=== PATIENT | female | born 1945 | race Caucasian/White ===

== ENCOUNTER 2019-02-07 16:58 | Inpatient (IN) | payer OTHER ==
[~2019-02-07] VITALS: Ht 162.6 cm; Wt 41.3 kg
[2019-02-07 18:45] VITALS: BP_SYST 153
[2019-02-07] MEDS ORDERED: ZIPR20CA2 PO (19:08)
[2019-02-07] MEDS ORDERED: ALBU8.5H8 INH (19:08)
[2019-02-07] MEDS ORDERED: FLUT1DIS3 IH ×2 (19:08→19:43)
[2019-02-07] MEDS ORDERED: VITD2000 PO (19:43)
[2019-02-07] MEDS ORDERED: VALP250C3 PO (19:43)
[2019-02-07] MEDS ORDERED: DOCU250C14 PO (19:43)
[2019-02-07] MEDS ORDERED: GEO40 PO (19:43)
[2019-02-07 20:02] VITALS: BP_SYST 140
[2019-02-07] MEDS ORDERED: ALBUTEROL SULFATE 0.083% 2.5 MG/3 ML VIAL.NEB INH PRN (21:45)
[2019-02-07 22:11] VITALS: BP_SYST 140
[2019-02-07 22:21] LABS: BASOPHILS % (AUTO) 0.2 % (0.0-2.0); EOSINOPHILS % (AUTO) 0.8 % (0.0-4.0); HEMATOCRIT 40.1 % (36-48); HEMOGLOBIN 13.6 g/dL (12.0-16.0); LYMPHOCYTES % (AUTO) 16.7 % (20.5-51.5); MEAN CORPUSCULAR HEMOGLOBIN 31 pg (27-31); MEAN CORPUSCULAR HGB CONC 34 % (32-36); MEAN CORPUSCULAR VOLUME 92 fL (79.0-98.0); MONOCYTES # (AUTO) 0.4 K/uL (0.0-1.0); MONOCYTES % (AUTO) 6.5 % (1.7-9.3); NEUTROPHILS # (AUTO) 4.4 K/uL (1.8-7.7); NEUTROPHILS % (AUTO) 75.8 % (40.0-70.0); PLATELET COUNT (AUTO) 163 K/uL (130-430); RED BLOOD CELL COUNT(AUTO) 4.36 MIL/uL (4.2-6.2); RED CELL DISTRIBUTION WIDTH 15.3 % (9.0-15.0); WHITE BLOOD COUNT (AUTO) 5.8 K/uL (4.8-10.8)
[2019-02-07 22:30] LABS: ANION GAP 1 (5-15); CALCIUM 8.8 mg/dL (8.4-11.0); CHLORIDE 103 mmol/L (98-107); CREATININE 0.47 mg/dL (0.55-1.30); GLUCOSE 116 mg/dL (70-99); POTASSIUM 3.4 mmol/L (3.5-5.1); SODIUM SERUM 140 mmol/L (136-145); UREA NITROGEN, BLOOD 14 mg/dL (8-21)
[2019-02-07 22:36] LABS: ALANINE AMINOTRANSFERASE 15 U/L (12-78); ALBUMIN 3.4 g/dL (3.4-4.8); ASPARTATE AMINOTRANSFERASE 28 U/L (10-37); TOTAL BILIRUBIN 0.4 mg/dL (0.0-1.0)
[2019-02-07 23:34] VITALS: BP_SYST 128
[2019-02-07 23:34] LABS: BILIRUBIN,URINE NEGATIVE (NEGATIVE); CLARITY/URINE CLEAR (CLEAR); COLOR,URINE YELLOW (YELLOW); GLUCOSE,URINE NEGATIVE (NEGATIVE); KETONES,URINE 1+ (NEGATIVE); LEUKOCYTE ESTERASE ,URINE NEGATIVE (NEGATIVE); NITRITE, URINE NEGATIVE (NEGATIVE); PH,URINE 7.5 (5.0-8.0); PROTEIN URINE NEGATIVE (NEGATIVE)
[2019-02-07 23:42] LABS: BLOOD, URINE TRACE (NEGATIVE)
[2019-02-07 23:44] LABS: BACTERIA,URINE MANY /HPF (None Seen); WBC,URINE 0-3 /HPF (0-3)
[2019-02-08] MEDS: NACL 0.9% 1,000 ML IV SCH ×2 (00:58→09:17)
[2019-02-08 08:00] VITALS: BP_SYST 111
[2019-02-08 08:21] LABS: BASOPHILS % (AUTO) 0.4 % (0.0-2.0); EOSINOPHILS # (AUTO) 0.1 K/uL (0.0-0.4); EOSINOPHILS % (AUTO) 1.8 % (0.0-4.0); HEMATOCRIT 36.7 % (36-48); HEMOGLOBIN 12.3 g/dL (12.0-16.0); LYMPHOCYTES # (AUTO) 1.2 K/uL (1.0-5.5); LYMPHOCYTES % (AUTO) 21.7 % (20.5-51.5); MEAN CORPUSCULAR HEMOGLOBIN 31 pg (27-31); MEAN CORPUSCULAR HGB CONC 33 % (32-36); MEAN CORPUSCULAR VOLUME 92 fL (79.0-98.0); MONOCYTES # (AUTO) 0.5 K/uL (0.0-1.0); MONOCYTES % (AUTO) 8.1 % (1.7-9.3); NEUTROPHILS # (AUTO) 3.9 K/uL (1.8-7.7); PLATELET COUNT (AUTO) 148 K/uL (130-430); RED BLOOD CELL COUNT(AUTO) 3.98 MIL/uL (4.2-6.2); RED CELL DISTRIBUTION WIDTH 15.5 % (9.0-15.0); WHITE BLOOD COUNT (AUTO) 5.7 K/uL (4.8-10.8)
[2019-02-08 08:37] LABS: ANION GAP 2 (5-15); CALCIUM 8.4 mg/dL (8.4-11.0); CHLORIDE 105 mmol/L (98-107); GLUCOSE 76 mg/dL (70-99); POTASSIUM 3.6 mmol/L (3.5-5.1); SODIUM SERUM 140 mmol/L (136-145); UREA NITROGEN, BLOOD 10 mg/dL (8-21)
[2019-02-08] MEDS ORDERED: FLU VACC TS2019(65UP)/MF59C/PF 45 MCG/0.5 ML SYRINGE I.M. PRN (09:00)
[2019-02-08] MEDS: CHOLECALCIFEROL (VITAMIN D3) 2,000 UNIT TABLET PO SCH (09:33)
[2019-02-08] MEDS: DOCUSATE SODIUM 250 MG CAPSULE PO SCH ×2 (09:33→20:29)
[2019-02-08] MEDS: VALPROIC ACID 250 MG CAPSULE (DEPAKENE) PO SCH ×2 (09:33→20:29)
[2019-02-08 12:00] VITALS: BP_SYST 118
[2019-02-08 16:45] VITALS: BP_SYST 145
[2019-02-08 20:28] VITALS: BP_SYST 113
[2019-02-08] MEDS: ZIPRASIDONE HCL 20 MG CAPSULE (GEODON) PO SCH (20:29)
[2019-02-08 23:33] VITALS: BP_SYST 123
[2019-02-09] MEDS: NACL 0.9% 1,000 ML IV SCH ×2 (02:45→22:54)
[2019-02-09 06:51] LABS: ANION GAP 3 (5-15); CALCIUM 8.4 mg/dL (8.4-11.0); CHLORIDE 107 mmol/L (98-107); CREATININE 0.37 mg/dL (0.55-1.30); GLUCOSE 79 mg/dL (70-99); POTASSIUM 3.2 mmol/L (3.5-5.1); SODIUM SERUM 142 mmol/L (136-145); UREA NITROGEN, BLOOD 10 mg/dL (8-21)
[2019-02-09 06:58] LABS: BASOPHILS % (AUTO) 0.5 % (0.0-2.0); EOSINOPHILS # (AUTO) 0.1 K/uL (0.0-0.4); EOSINOPHILS % (AUTO) 1.8 % (0.0-4.0); HEMOGLOBIN 12.9 g/dL (12.0-16.0); LYMPHOCYTES # (AUTO) 1.2 K/uL (1.0-5.5); LYMPHOCYTES % (AUTO) 22.3 % (20.5-51.5); MEAN CORPUSCULAR HEMOGLOBIN 31 pg (27-31); MEAN CORPUSCULAR HGB CONC 34 % (32-36); MEAN CORPUSCULAR VOLUME 92 fL (79.0-98.0); MONOCYTES # (AUTO) 0.4 K/uL (0.0-1.0); NEUTROPHILS # (AUTO) 3.6 K/uL (1.8-7.7); NEUTROPHILS % (AUTO) 67.4 % (40.0-70.0); PLATELET COUNT (AUTO) 149 K/uL (130-430); RED BLOOD CELL COUNT(AUTO) 4.13 MIL/uL (4.2-6.2); RED CELL DISTRIBUTION WIDTH 15.1 % (9.0-15.0); WHITE BLOOD COUNT (AUTO) 5.4 K/uL (4.8-10.8)
[2019-02-09 08:20] VITALS: BP_SYST 148
[2019-02-09] MEDS: VALPROIC ACID 250 MG CAPSULE (DEPAKENE) PO SCH ×2 (08:37→22:35)
[2019-02-09] MEDS: DOCUSATE SODIUM 250 MG CAPSULE PO SCH ×2 (08:37→22:35)
[2019-02-09] MEDS: CHOLECALCIFEROL (VITAMIN D3) 2,000 UNIT TABLET PO SCH (08:37)
[2019-02-09 12:00] VITALS: BP_SYST 120
[2019-02-09] MEDS ORDERED: POTASSIUM CHLORIDE 20 MEQ/PKT PACKET PO ONE (14:15)
[2019-02-09 17:05] VITALS: BP_SYST 139
[2019-02-09] MEDS: ZIPRASIDONE HCL 20 MG CAPSULE (GEODON) PO SCH (22:36)
[2019-02-09 23:39] VITALS: BP_SYST 151
[2019-02-10 08:24] VITALS: BP_SYST 145
[2019-02-10] MEDS: CHOLECALCIFEROL (VITAMIN D3) 2,000 UNIT TABLET PO SCH (09:04)
[2019-02-10] MEDS: DOCUSATE SODIUM 250 MG CAPSULE PO SCH (09:04)
[2019-02-10] MEDS: VALPROIC ACID 250 MG CAPSULE (DEPAKENE) PO SCH (09:04)
[2019-02-10 11:27] VITALS: BP_SYST 152
[2019-02-10 15:01] VITALS: BP_SYST 101
[2019-02-10 15:33] VITALS: BP_SYST 101
== END 2019-02-10 18:28 | DRG 70 ==
LOC: SMU 18:30 → STU 19:25 → SMU 02-08 18:36
PROVIDERS: ADMIT Family Medicine; ATTEND Family Medicine
DX: G93.41 Metabolic encephalopathy (principal); E43 Unspecified severe protein-calorie malnutrition; Z68.1 Body mass index [BMI] 19.9 or less, adult; E86.0 Dehydration; J44.9 Chronic obstructive pulmonary disease, unspecified; M19.90 Unspecified osteoarthritis, unspecified site; F03.90 Unspecified dementia, unspecified severity, without behavioral disturbance, psychotic disturbance, mood disturbance, and anxiety; Z79.899 Other long term (current) drug therapy
CPT/HCPCS: 36415; 71045; 80048; 80053; 81000-TC; 85025; 87086; 97110-GP; 97530-GP; G0378; J7030

== ENCOUNTER 2019-04-30 08:04 | Inpatient (IN) | payer OTHER ==
[~2019-04-30] VITALS: Ht 152.4 cm; Wt 41.7 kg
[2019-04-30 08:04] VITALS: BP_SYST 125
[~2019-04-30 08:04] MED LIST: ALBU8.5H8 INH; DOCU250C14 PO; FLUT1DIS3 IH; GEO40 PO; VALP250C3 PO; VITD2000 PO; ZIPR20CA2 PO
--- NOTE | 2019-04-30 08:04 | NUR ---
Placed in room 1. Placed on automation operator, blood pressure machine and pulse oximeter. To gown for exam. Side rails up. Report given to BRYNN Parrish.
--- NOTE | 2019-04-30 08:05 | NUR ---
ER at bedside examining patient.
--- NOTE | 2019-04-30 08:10 | NUR ---
Pt came to ER AO1, O2 79% on RA, pt placed on non rebreather 15L O2 WNL. Pt responds to verbal stimulus, bedbound, nonverbal. Sent from Yogesh Hinds for decreased LOC and O2 sat
[2019-04-30] MEDS ORDERED: IPRATROPIUM/ALBUTEROL SULFATE 3 ML AMPUL.NEB (DUONEB) INH ONE (08:15)
[2019-04-30] MEDS ORDERED: VITD2000 PO (08:33)
[2019-04-30] MEDS ORDERED: DOCU-144 PO (08:33)
--- NOTE | 2019-04-30 08:33 | NUR ---
Medication reconciliation completed with information provided by Yogesh Hinds. Any prior medication reconciliation on file was reviewed and corrected.
[2019-04-30 09:05] LABS: BASOPHILS % (AUTO) 0.1 % (0.0-2.0); HEMATOCRIT 37.6 % (36-48); HEMOGLOBIN 12.3 g/dL (12.0-16.0); LYMPHOCYTES # (AUTO) 0.2 K/uL (1.0-5.5); LYMPHOCYTES % (AUTO) 1.3 % (20.5-51.5); MEAN CORPUSCULAR HEMOGLOBIN 30 pg (27-31); MEAN CORPUSCULAR HGB CONC 33 % (32-36); MEAN CORPUSCULAR VOLUME 93 fL (79.0-98.0); MONOCYTES % (AUTO) 7.3 % (1.7-9.3); NEUTROPHILS # (AUTO) 13.1 K/uL (1.8-7.7); NEUTROPHILS % (AUTO) 91.3 % (40.0-70.0); PLATELET COUNT (AUTO) 289 K/uL (130-430); RED BLOOD CELL COUNT(AUTO) 4.04 MIL/uL (4.2-6.2); WHITE BLOOD COUNT (AUTO) 14.4 K/uL (4.8-10.8)
[2019-04-30 09:10] LABS: BILIRUBIN,URINE 1+ (NEGATIVE); BLOOD, URINE 2+ (NEGATIVE); CLARITY/URINE CLEAR (CLEAR); COLOR,URINE YELLOW (YELLOW); GLUCOSE,URINE NEGATIVE (NEGATIVE); KETONES,URINE 1+ (NEGATIVE); LEUKOCYTE ESTERASE ,URINE 2+ (NEGATIVE); NITRITE, URINE POSITIVE (NEGATIVE); PROTEIN URINE 1+ (NEGATIVE)
[2019-04-30 09:12] LABS: BACTERIA,URINE MODERATE /HPF (None Seen); MUCUS,URINE 2+ /LPF (None Seen); WBC,URINE >100 /HPF (0-3)
[2019-04-30 09:20] LABS: ANION GAP 6 (5-15); CALCIUM 9.6 mg/dL (8.4-11.0); CHLORIDE 103 mmol/L (98-107); CREATININE 0.48 mg/dL (0.55-1.30); GLUCOSE 118 mg/dL (70-99); POTASSIUM 4.3 mmol/L (3.5-5.1); SODIUM SERUM 145 mmol/L (136-145); UREA NITROGEN, BLOOD 35 mg/dL (8-21)
[2019-04-30 09:26] LABS: ALANINE AMINOTRANSFERASE 21 U/L (12-78); ALBUMIN 2.6 g/dL (3.4-4.8); ASPARTATE AMINOTRANSFERASE 19 U/L (10-37); TOTAL BILIRUBIN 0.5 mg/dL (0.0-1.0)
[2019-04-30] MEDS ORDERED: cefTRIAXone 1 GM IVPB PREMIX 50 ML IV ONE (10:30)
[2019-04-30] MEDS ORDERED: NACL 0.9% 2,000 ML IV ONE (10:30)
[2019-04-30 11:01] LABS: INR 1.1 (0.8-1.2); PROTHROMBIN TIME 10.7 SECS (9.5-12.5)
--- NOTE | 2019-04-30 11:22 | NUR ---
Patient will be admitted to care of Dr Lara. Admitted to Tele unit. Will go to room 122B. Belongings list completed. Complete and up to date summary report printed. SBAR report to be given at bedside with opportunity for questions.
--- NOTE | 2019-04-30 11:37 | NUR ---
ADMISSION: Received from ER on a gurney with the diagnosis of Pneumonia and UTI. Patient is non verbal. On non rebreather mask [address] on low air mattress due to contractures and skin breakdowns. Call light within reach.
[2019-04-30 11:50] VITALS: BP_SYST 103
[2019-04-30 11:55] VITALS: BP_SYST 103
--- NOTE | 2019-04-30 11:56 | NUR ---
Transfer to Tele Unit via ACLS protocol. Licensed nurse present. IV present no signs or symptoms of infiltration. Bedside report given to Ann
--- NOTE | 2019-04-30 12:00 | NUR ---
Opening note patient resting in bed at this time, A/ox1, no complaints of pain. On bipap. Iv patent, intact and infusing fluids as ordered. No adverse side effects noted. On safety and aspiration precautions, HOB kept elevated, 3 side rails up, bed alarm on, call light within reach. patient in stable condition. Will continue to monitor.
--- NOTE | 2019-04-30 13:40 | NUR ---
RT Note: 1337 Pt placed on 4LPM oxymizer, 41% FiO2 PER Dr Lara. Pt is maintaining SpO2 in the high 90s. Will keep BiPAP on standby and will continue to monitor pt.
[2019-04-30] MEDS ORDERED: ACETAMINOPHEN 650 MG SUPP.RECT RC PRN (14:00)
[2019-04-30] MEDS: KCL 20 mEq in D5/0.45NS 1000mL 1,000 ML IV SCH (14:08)
[2019-04-30] MEDS: MEROPENEM 500 MG in NS 50 ML IV SCH ×3 (14:21→21:29)
[2019-04-30] MEDS: methylPREDNISolone SOD SUCC/PF 62.5 MG/ML VIAL IVP SCH ×2 (14:21→21:24)
--- NOTE | 2019-04-30 14:30 | NUR ---
rounds patient resting in bed at this time, no complaints of pain. On oxymizer 3 lpm, tolerating well. No SOB. Patient in stable condition.
--- NOTE | 2019-04-30 14:44 | NUR ---
CALLED/LEFT MESSAGE [facility]IV[facility].
[2019-04-30] MEDS: AZITHROMYCIN 500 MG in NS 250 ML IV SCH (15:27)
[2019-04-30] MEDS: LevALBUTEROL HCL 1.25 MG/0.5 ML *CONC.* VIAL.NEB (XOPENEX CONC.) INH SCH ×3 (15:40→23:07)
--- NOTE | 2019-04-30 16:47 | NUR ---
S.T. SWALLOW EVAL SWALLOW EVAL COMPLETED. PT PRESENTS W/ MOD-SEV OROPHARYNGEAL DYSPHAGIA W/ SEV DELAYED BOLUS TRANSFER AND SWALLOW INITIATION. NO S/S OF ASPIRATION, BUT RISK PRESENT D/T NOTED DELAYS. HIGH RISK FOR DEHYDRATION AND FURTHER DEHYDRATION. REC: PUREE DIET AND THIN LIQUIDS. PT WILL REQUIRE EXTRA TIME TO FEED. MONITOR FOR ADEQUATE INTAKE. PT MAY BE A CANDIDATE FOR GT AND P.O. FOR ORAL GRATIFICATION IF INTAKE REMAINS INADEQUATE. NURSE MARKOS NOTIFIED. [id number] CK G8997 CK G8998 CK NOMS LEVEL 4
--- NOTE | 2019-04-30 17:02 | NUR ---
andre catheter ordered to put andre catheter for urine monitoring. Andre catheter insertion done as ordered. Andre catheter draining yellow urine to gravity.
--- NOTE | 2019-04-30 18:41 | NUR ---
closing note patient resting in bed at this time, A/ox1, no complaints of pain. Iv patent, intact and infusing fluids as ordered. No adverse side effects noted. On safety and aspiration precautions, HOB kept elevated, 3 side rails up, bed alarm on, call light within reach. patient in stable condition. andre catheter in place, draining yellow urine. All needs met.
--- NOTE | 2019-04-30 19:35 | NUR ---
ROUNDS PATIENT RESTING COMFORTABLY IN BED, ALERT, ORIENTED X1, NOT IN DISTRESS, VITALS STABLE. NO SIGNS OF ANY PAIN AND DISCOMFORT NOTED. ASSESSMENT DONE AND DOCUMENTED. SEE FLOWSHEET. NEEDS ATTENDED TO. SAFETY MEASURES IN PLACED. CALL LIGHT PLACED WITHIN REACH.
--- NOTE | 2019-04-30 21:04 | NUR ---
MEDICATION DUE MEDICATIONS GIVEN SCHEDULED, TOLERATED WELL. WILL CONTINUE TO MONITOR.
[2019-04-30] MEDS: VALPROIC ACID 250 MG CAPSULE (DEPAKENE) PO SCH (21:25)
[2019-04-30] MEDS: ENOXAPARIN SODIUM 30 MG/0.3 ML SYRINGE SUBCUT SCH (21:27)
--- NOTE | 2019-05-01 00:12 | NUR ---
PATIENT RESTING: Patient resting quietly. No acute distress noted. Vital signs within normal range.
[2019-05-01 01:37] VITALS: BP_SYST 112
[2019-05-01] MEDS: KCL 20 mEq in D5/0.45NS 1000mL 1,000 ML IV SCH ×3 (02:00→13:21)
--- NOTE | 2019-05-01 02:13 | NUR ---
ROUNDS PATIENT ASLEEP, RESPIRATIONS EVEN AND UNLABORED, WILL CONTINUE TO MONITOR.
[2019-05-01] MEDS: LevALBUTEROL HCL 1.25 MG/0.5 ML *CONC.* VIAL.NEB (XOPENEX CONC.) INH SCH ×5 (03:05→20:13)
--- NOTE | 2019-05-01 04:17 | NUR ---
PATIENT RESTING: Patient resting quietly. No acute distress noted. Vital signs within normal range.
[2019-05-01] MEDS: methylPREDNISolone SOD SUCC/PF 62.5 MG/ML VIAL IVP SCH ×3 (05:29→21:30)
[2019-05-01] MEDS: MEROPENEM 500 MG in NS 50 ML IV SCH ×3 (05:30→21:30)
--- NOTE | 2019-05-01 06:48 | NUR ---
CLOSING NOTES PATIENT AWAKE, VITALS STABLE, NO SIGNS OF ANY PAIN AND DISCOMFORT NOTED. ALL NEEDS ATTENDED TO. SAFETY AND FALL MEASURES MAINTAINED. CALL LIGHT PLACED WITHIN REACH.
--- NOTE | 2019-05-01 07:42 | NUR ---
Opening note patient resting in bed at this time, A/ox1, no complaints of pain. On Oxymizer 3 lpm tolerating well. No SOB. Iv patent, intact and infusing fluids as ordered. No adverse side effects noted. Beltran catheter in place, draining yellow urine to gravity. On safety and aspiration precautions, HOB kept elevated, 3 side rails up, bed alarm on, call light within reach. patient in stable condition. Will continue to monitor.
[2019-05-01 07:56] LABS: BASOPHILS % (AUTO) 0.1 % (0.0-2.0); HEMATOCRIT 29.5 % (36-48); HEMOGLOBIN 9.7 g/dL (12.0-16.0); LYMPHOCYTES # (AUTO) 0.2 K/uL (1.0-5.5); LYMPHOCYTES % (AUTO) 3.8 % (20.5-51.5); MEAN CORPUSCULAR HEMOGLOBIN 31 pg (27-31); MEAN CORPUSCULAR HGB CONC 33 % (32-36); MEAN CORPUSCULAR VOLUME 93 fL (79.0-98.0); MONOCYTES # (AUTO) 0.1 K/uL (0.0-1.0); NEUTROPHILS # (AUTO) 4.2 K/uL (1.8-7.7); NEUTROPHILS % (AUTO) 93.1 % (40.0-70.0); PLATELET COUNT (AUTO) 235 K/uL (130-430); RED BLOOD CELL COUNT(AUTO) 3.16 MIL/uL (4.2-6.2); RED CELL DISTRIBUTION WIDTH 13.9 % (9.0-15.0); WHITE BLOOD COUNT (AUTO) 4.5 K/uL (4.8-10.8)
[2019-05-01 08:00] VITALS: BP_SYST 111
[2019-05-01] MEDS: CHOLECALCIFEROL (VITAMIN D3) 2,000 UNIT TABLET PO SCH (08:14)
[2019-05-01] MEDS: DOCUSATE SODIUM 100 MG CAPSULE PO SCH (08:14)
[2019-05-01] MEDS: VALPROIC ACID 250 MG CAPSULE (DEPAKENE) PO SCH ×2 (08:14→21:29)
[2019-05-01 08:20] LABS: ANION GAP 0 (5-15); CALCIUM 8.4 mg/dL (8.4-11.0); CHLORIDE 111 mmol/L (98-107); CREATININE 0.34 mg/dL (0.55-1.30); GLUCOSE 130 mg/dL (70-99); POTASSIUM 4.6 mmol/L (3.5-5.1); SODIUM SERUM 145 mmol/L (136-145); UREA NITROGEN, BLOOD 25 mg/dL (8-21)
--- NOTE | 2019-05-01 09:00 | NUR ---
medications All morning medications given as ordered. Patient able to swallow, no signs of aspiration noted. no nausea, no vomiting.
--- NOTE | 2019-05-01 10:57 | NUR ---
Nutrition Update Dom Scale 14 noted. Pt admitted for pneumonia/UTI. Diet: pureed BMI: 18 kg/m2 RD to follow per nutrition care standards.
--- NOTE | 2019-05-01 11:19 | NUR ---
skin care skin care provided, linens changed. Oral care provided. No other needs at this time.
[2019-05-01 12:18] VITALS: BP_SYST 126
--- NOTE | 2019-05-01 12:38 | NUR ---
lunch patient sitting up in bed eating lunch, tolerating well. No nausea, no vomiting. no coughing noted.
[2019-05-01] MEDS: AZITHROMYCIN 500 MG in NS 250 ML IV SCH (14:46)
--- NOTE | 2019-05-01 15:00 | NUR ---
IV infiltration New IV started on right forearm gauge 24. IV patent, intact, and infusing fluids as ordered. No infiltration noted.
[2019-05-01 16:48] VITALS: BP_SYST 132
--- NOTE | 2019-05-01 18:02 | NUR ---
closing note patient resting in bed at this time, A/ox1, no complaints of pain. Iv patent, intact and infusing fluids as ordered. No adverse side effects noted. Beltran catheter in place, draining yellow urine to gravity. On safety and aspiration precautions, HOB kept elevated, 3 side rails up, bed alarm on, call light within reach. patient in stable condition. All needs met.
[2019-05-01 19:45] VITALS: BP_SYST 132
--- NOTE | 2019-05-01 19:45 | NUR ---
INITIAL NOTE AT INITIAL ASSESSMENT, PATIENT IS RESTING IN BED, STABLE, NO SIGNS OF RESPIRATORY DISTRESS. PATIENT VERBALIZES NO PAIN. PLAN OF CARE FOR THE NIGHT IS DISCUSSED WITH THE PATIENT AT THIS TIME. PATIENT IS UNSUCCESSFUL IN DEMONSTRATION OF CALL LIGHT USAGE DUE TO COGNITIVE IMPAIRMENT. ROUNDING WILL BE COMPLETED AT LEAST [id number] THROUGHOUT THE SHIFT. BED IS LOCKED, ALARMED, AND AT THE LOWEST LEVEL. FALL, SAFETY, RESPIRATORY, AND SEIZURE PRECAUTIONS WILL BE IN PLACE THROUGHOUT THE SHIFT. PATIENT WILL BE TURNED AT LEAST [id number] THROUGHOUT THE SHIFT.
[2019-05-01] MEDS: ENOXAPARIN SODIUM 30 MG/0.3 ML SYRINGE SUBCUT SCH (21:43)
--- NOTE | 2019-05-01 21:45 | NUR ---
NOTE SCHEDULED NIGHT TIME MEDICATIONS ARE GIVEN AT THIS TIME, PATIENT TOLERATED WELL. PATIENT IS RESTING IN BED, STABLE, NO SIGNS OF RESPIRATORY DISTRESS. BED IS LOCKED, ALARMED, AND AT THE LOWEST LEVEL.
--- NOTE | 2019-05-01 23:40 | NUR ---
NOTE PATIENT IS SLEEPING, STABLE, NO SIGNS OF RESPIRATORY DISTRESS. BED IS LOCKED, ALARMED, AND AT THE LOWEST LEVEL.
[2019-05-02] MEDS: KCL 20 mEq in D5/0.45NS 1000mL 1,000 ML IV SCH ×3 (01:31→23:51)
--- NOTE | 2019-05-02 01:40 | NUR ---
NOTE PATIENT IS SLEEPING, STABLE, NO SIGNS OF RESPIRATORY DISTRESS. BED IS LOCKED, ALARMED, AND AT THE LOWEST LEVEL.
[2019-05-02] MEDS: LevALBUTEROL HCL 1.25 MG/0.5 ML *CONC.* VIAL.NEB (XOPENEX CONC.) INH SCH ×4 (02:49→17:28)
--- NOTE | 2019-05-02 03:40 | NUR ---
HYGIENE CARE HYGIENE CARE PROVIDED AT THIS TIME, PATIENT TOLERATED WELL. FRESH LINENS PROVIDED. PATIENT REPOSITIONED FOR COMFORT, STABLE, NO SIGNS OF RESPIRATORY DISTRESS. BED IS LOCKED, ALARMED, AND AT THE LOWEST LEVEL.
--- NOTE | 2019-05-02 05:40 | NUR ---
NOTE PATIENT IS SLEEPING, STABLE, NO SIGNS OF RESPIRATORY DISTRESS. BED IS LOCKED, ALARMED, AND AT THE LOWEST LEVEL.
[2019-05-02] MEDS: MEROPENEM 500 MG in NS 50 ML IV SCH ×3 (06:13→21:05)
[2019-05-02] MEDS: methylPREDNISolone SOD SUCC/PF 62.5 MG/ML VIAL IVP SCH ×3 (06:14→21:03)
[2019-05-02 06:55] LABS: HEMATOCRIT 31.9 % (36-48); HEMOGLOBIN 10.4 g/dL (12.0-16.0); LYMPHOCYTES # (AUTO) 0.2 K/uL (1.0-5.5); LYMPHOCYTES % (AUTO) 3.5 % (20.5-51.5); MEAN CORPUSCULAR HEMOGLOBIN 31 pg (27-31); MEAN CORPUSCULAR HGB CONC 33 % (32-36); MEAN CORPUSCULAR VOLUME 94 fL (79.0-98.0); MONOCYTES # (AUTO) 0.2 K/uL (0.0-1.0); MONOCYTES % (AUTO) 5.1 % (1.7-9.3); NEUTROPHILS # (AUTO) 4.1 K/uL (1.8-7.7); NEUTROPHILS % (AUTO) 91.4 % (40.0-70.0); PLATELET COUNT (AUTO) 242 K/uL (130-430); RED BLOOD CELL COUNT(AUTO) 3.39 MIL/uL (4.2-6.2); RED CELL DISTRIBUTION WIDTH 14.2 % (9.0-15.0); WHITE BLOOD COUNT (AUTO) 4.5 K/uL (4.8-10.8)
--- NOTE | 2019-05-02 06:55 | NUR ---
CLOSING NOTE PATIENT SLEPT WELL THROUGHOUT THE SHIFT. AT THIS TIME, PATIENT IS RESTING IN BED, STABLE, NO SIGNS OF RESPIRATORY DISTRESS. BED IS LOCKED, ALARMED, AND AT THE LOWEST LEVEL. FALL, SAFETY, ASPIRATION, AND RESPIRATORY PRECAUTIONS HAVE BEEN IN PLACE THROUGHOUT THE SHIFT.
[2019-05-02 07:12] LABS: CALCIUM 8.7 mg/dL (8.4-11.0); CHLORIDE 105 mmol/L (98-107); CREATININE 0.34 mg/dL (0.55-1.30); GLUCOSE 189 mg/dL (70-99); POTASSIUM 4.4 mmol/L (3.5-5.1); SODIUM SERUM 145 mmol/L (136-145); UREA NITROGEN, BLOOD 23 mg/dL (8-21)
[2019-05-02 07:15] LABS: ANION GAP < 3 (5-15)
--- NOTE | 2019-05-02 07:27 | NUR ---
INITIAL NOTE PT RESTING IN BED, PT ON 3L OXIMIZER TOLERATING WELL, BREATHING EVEN AND UNLABORED, NO ACUTE DISTRESS NOTED. IV FLUIDS INFUSING WELL. CALL LIGHT WITHIN REACH, BED IN LOW AND LOCKED POSITION WITH BED ALARM ON.
[2019-05-02 08:21] VITALS: BP_SYST 117
[2019-05-02] MEDS: DOCUSATE SODIUM 100 MG CAPSULE PO SCH (08:48)
[2019-05-02] MEDS: CHOLECALCIFEROL (VITAMIN D3) 2,000 UNIT TABLET PO SCH (08:48)
[2019-05-02] MEDS: VALPROIC ACID 250 MG CAPSULE (DEPAKENE) PO SCH ×2 (08:48→21:03)
--- NOTE | 2019-05-02 09:30 | NUR ---
RN ROUNDS PT AWAKE, OFFERED ORAL INTAKE. PT REFUSED ENSURE BUT DRANK APPLE JUICE. NO ACUTE DISTRESS NOTED. WILL CONTINUE TO MONITOR.
--- NOTE | 2019-05-02 11:32 | NUR ---
RN ROUNDS PT RESTING IN BED, PT ON 3L OXIMIZER TOLERATING WELL. NO ACUTE DISTRESS NOTED, BREATHING EVEN AND UNLABORED.
[2019-05-02 12:15] VITALS: BP_SYST 134; BP_SYST 154
[2019-05-02] MEDS: AZITHROMYCIN 500 MG in NS 250 ML IV SCH (13:05)
--- NOTE | 2019-05-02 13:36 | NUR ---
INCONTINENT PT INCONTINENT OF BOWEL. CHANGED PATIENT. APPLIED NEW DRESSING TO COCCYX. PT TOLERATED WELL. REPOSITIONED FOR COMFORT.
--- NOTE | 2019-05-02 15:30 | NUR ---
RN ROUNDS PT AWAKE, NO ACUTE DISTRESS NOTED. DAUGHTER AT BEDSIDE. WILL CONTINUE TO MONITOR.
[2019-05-02 16:45] VITALS: BP_SYST 119
--- NOTE | 2019-05-02 17:21 | NUR ---
Dietitian Recommendations *Continue puree diet *Each tray comes standard with Ensure Enlive (325kcal, 20gPro per serving) *Encourage PO intake Please see Nutrition Assessment for further details. LT, RD
--- NOTE | 2019-05-02 17:43 | NUR ---
RN ROUNDS PT RESTING IN BED, NO ACUTE DISTRESS NOTED, PT ON 3L OXIMIZER TOLERATING WELL. WILL CONTINUE TO MONITOR.
--- NOTE | 2019-05-02 18:32 | NUR ---
CLOSING NOTE PT RESTING IN BED, NO ACUTE DISTRESS NOTED, BREATHING EVEN AND UNLABORED. PT ON REMAINS ON 3L OXIMIZER TOLERATING WELL. DANG DRAINING TO GRAVITY. IVF INFUSING WELL. CALL LIGHT WITHIN REACH, BED IN LOW AND LOCKED POSITION WITH BED ALARM ON. ALL NEEDS MET THROUGHOUT SHIFT. WILL CONTINUE TO MONITOR UNTIL PT CARE IS ENDORSED TO GREASE REFINER OPERATOR RN.
[2019-05-02 20:00] VITALS: BP_SYST 125
[2019-05-02] MEDS: ENOXAPARIN SODIUM 30 MG/0.3 ML SYRINGE SUBCUT SCH (21:07)
--- NOTE | 2019-05-02 22:07 | NUR ---
Patient in bed. No acute distress noted. Will continue to monitor.
[2019-05-03] VITALS (7 sets, daily range): BP systolic 114–145
[2019-05-03] MEDS: LevALBUTEROL HCL 1.25 MG/0.5 ML *CONC.* VIAL.NEB (XOPENEX CONC.) INH SCH ×6 (00:25→23:08)
--- NOTE | 2019-05-03 01:14 | NUR ---
Beltran replaced with a 16fr kit. Will continue to monitor.
[2019-05-03] MEDS: methylPREDNISolone SOD SUCC/PF 62.5 MG/ML VIAL IVP SCH ×3 (05:07→21:28)
[2019-05-03] MEDS: MEROPENEM 500 MG in NS 50 ML IV SCH ×3 (05:07→21:29)
--- NOTE | 2019-05-03 06:14 | NUR ---
Ruby continues to leak. Will endorse to a.m. shift.
[2019-05-03 06:28] LABS: CALCIUM 8.3 mg/dL (8.4-11.0); CHLORIDE 103 mmol/L (98-107); CREATININE 0.28 mg/dL (0.55-1.30); GLUCOSE 156 mg/dL (70-99); POTASSIUM 4.6 mmol/L (3.5-5.1); SODIUM SERUM 141 mmol/L (136-145); UREA NITROGEN, BLOOD 16 mg/dL (8-21)
[2019-05-03 06:39] LABS: ANION GAP < 3 (5-15)
[2019-05-03 06:55] LABS: BASOPHILS % (AUTO) 0.2 % (0.0-2.0); HEMATOCRIT 30.8 % (36-48); LYMPHOCYTES # (AUTO) 0.2 K/uL (1.0-5.5); MEAN CORPUSCULAR HEMOGLOBIN 30 pg (27-31); MEAN CORPUSCULAR HGB CONC 33 % (32-36); MEAN CORPUSCULAR VOLUME 94 fL (79.0-98.0); MONOCYTES # (AUTO) 0.3 K/uL (0.0-1.0); MONOCYTES % (AUTO) 6.2 % (1.7-9.3); NEUTROPHILS # (AUTO) 3.7 K/uL (1.8-7.7); NEUTROPHILS % (AUTO) 89.6 % (40.0-70.0); PLATELET COUNT (AUTO) 229 K/uL (130-430); RED BLOOD CELL COUNT(AUTO) 3.29 MIL/uL (4.2-6.2); WHITE BLOOD COUNT (AUTO) 4.1 K/uL (4.8-10.8)
--- NOTE | 2019-05-03 07:00 | NUR ---
Received CO2 level from lab. Made respiratory aware of level. Will continue to monitor.
--- NOTE | 2019-05-03 07:03 | NUR ---
Call placed to physician carbon brusher assembler Dr. Crawford. Awaiting return call.
--- NOTE | 2019-05-03 07:24 | NUR ---
CRITICAL LAB/DR. ORTIZ SPOKE WITH MD VIA PHONE, INFORMED MD PT CO2 40. NO NEW ORDERS RECEIVED.
--- NOTE | 2019-05-03 07:30 | NUR ---
INITIAL NOTE PT RESTING IN BED, NO ACUTE DISTRESS NOTED, PT ON 4L OXIMIZER SATURATING AT 100%. IVF INFUSING WELL. DANG DRAINING TO GRAVITY. CALL LIGHT WITHIN REACH, BED IN LOW AND LOCKED POSITION WITH BED ALARM ON.
[2019-05-03] MEDS: DOCUSATE SODIUM 100 MG CAPSULE PO SCH (09:08)
[2019-05-03] MEDS: VALPROIC ACID 250 MG CAPSULE (DEPAKENE) PO SCH ×2 (09:09→21:53)
[2019-05-03] MEDS: CHOLECALCIFEROL (VITAMIN D3) 2,000 UNIT TABLET PO SCH (09:09)
--- NOTE | 2019-05-03 09:30 | NUR ---
RN ROUNDS PT AWAKE. NON VERBAL, OPEN EYES AND TRACKS. NO ACUTE DISTRESS NOTED. PT ON OXIMIZER 3L. TOLERATING WELL.
[2019-05-03] MEDS: KCL 20 mEq in D5/0.45NS 1000mL 1,000 ML IV SCH (11:03)
--- NOTE | 2019-05-03 11:30 | NUR ---
RN ROUNDS PT IN HIGH FOWLERS POSITION. 3L OXIMIZER, TOLERATING WELL. PT RESTING, NO ACUTE DISTRESS NOTED.
[2019-05-03] MEDS: AZITHROMYCIN 500 MG in NS 250 ML IV SCH (12:57)
--- NOTE | 2019-05-03 13:45 | NUR ---
RN ROUNDS SCHEDULED MEDICATIONS ADMINISTERED, PT IN HIGH FOWLERS. SUCTIONED PT, PT TOLERATED WELL.
--- NOTE | 2019-05-03 15:23 | NUR ---
CONSULTATION PAGED/CALLED Reason for Consultation: [] RESP FAIL Person Who was Notified: [] DR MONDRAGON Consulting Physician: [] DR MONDRAGON [employer] Developer Specialty: [] PULMO Ordering Physician: [] DR ORTIZ
--- NOTE | 2019-05-03 16:45 | NUR ---
PATIENT LEFT TO CT
--- NOTE | 2019-05-03 17:20 | NUR ---
PATIENT BACK FROM CT
--- NOTE | 2019-05-03 18:16 | NUR ---
CLOSING NOTE PT RESTING IN BED, HIGH FOWLERS, REPOSITIONED FOR COMFORT. PT ON 2L OXIMIZER, TOLERATING WELL. IVF INFUSING WELL. DANG DRAINING TO GRAVITY. CALL LIGHT WITHIN REACH, BED IN LOW AND LOCKED POSITION WITH BED ALARM ON. ALL NEEDS MET THROUGH OUT SHIFT. WILL CONTINUE TO MONITOR UNTIL PT CARE IS ENDORSED TO HOUSING PROJECT MANAGER RN.
[2019-05-03] MEDS: ENOXAPARIN SODIUM 30 MG/0.3 ML SYRINGE SUBCUT SCH (21:32)
--- NOTE | 2019-05-03 22:35 | NUR ---
Patient in bed. Turned repositioned q2. No acute distress noted. Will continue to monitor.
[2019-05-04] MEDS: KCL 20 mEq in D5/0.45NS 1000mL 1,000 ML IV SCH ×2 (02:53→16:24)
[2019-05-04] MEDS: methylPREDNISolone SOD SUCC/PF 62.5 MG/ML VIAL IVP SCH ×3 (04:55→20:55)
[2019-05-04] MEDS: MEROPENEM 500 MG in NS 50 ML IV SCH ×3 (04:57→20:57)
[2019-05-04] MEDS: LevALBUTEROL HCL 1.25 MG/0.5 ML *CONC.* VIAL.NEB (XOPENEX CONC.) INH SCH ×6 (05:10→23:19)
--- NOTE | 2019-05-04 05:45 | NUR ---
No change to patient's current assessment.
[2019-05-04 06:45] LABS: CALCIUM 8.1 mg/dL (8.4-11.0); CHLORIDE 97 mmol/L (98-107); CREATININE 0.33 mg/dL (0.55-1.30); GLUCOSE 110 mg/dL (70-99); POTASSIUM 4.1 mmol/L (3.5-5.1); SODIUM SERUM 136 mmol/L (136-145); UREA NITROGEN, BLOOD 10 mg/dL (8-21)
[2019-05-04 06:48] LABS: HEMATOCRIT 32.3 % (36-48); HEMOGLOBIN 10.7 g/dL (12.0-16.0); MEAN CORPUSCULAR HEMOGLOBIN 31 pg (27-31); MEAN CORPUSCULAR HGB CONC 33 % (32-36); PLATELET COUNT (AUTO) 242 K/uL (130-430); RED BLOOD CELL COUNT(AUTO) 3.51 MIL/uL (4.2-6.2); RED CELL DISTRIBUTION WIDTH 13.8 % (9.0-15.0); WHITE BLOOD COUNT (AUTO) 3.8 K/uL (4.8-10.8)
[2019-05-04 06:57] LABS: ANION GAP < 3 (5-15)
--- NOTE | 2019-05-04 07:05 | NUR ---
Received critical lab: Received critical lab CO2, Charge nurse [facility] made aware
--- NOTE | 2019-05-04 07:06 | NUR ---
Received CO2 value of 43. Call placed to physician exchange awaiting return call.
[2019-05-04 07:27] LABS: MEAN CORPUSCULAR VOLUME 92 fL (79.0-98.0)
--- NOTE | 2019-05-04 08:00 | NUR ---
INITIAL NOTES- IN BED, OPEN HER EYES WHEN NAME CALLED. ON O2 2L, OXIMIXER. BRUISING NOTED ON BOTH ARMS AND LEGS. DANG CATH DRAINING CLEAR YELLOW URINE. TURN AND REPOSITIONED. BED ALARM ON. WILL MONITOR.
[2019-05-04 08:04] VITALS: BP_SYST 142
[2019-05-04] MEDS: VALPROIC ACID 250 MG CAPSULE (DEPAKENE) PO SCH ×2 (09:03→20:50)
[2019-05-04] MEDS: CHOLECALCIFEROL (VITAMIN D3) 2,000 UNIT TABLET PO SCH (09:03)
[2019-05-04] MEDS: DOCUSATE SODIUM 100 MG CAPSULE PO SCH (09:03)
--- NOTE | 2019-05-04 11:00 | NUR ---
NOTES- IV WAS OUT, STARTED A NEW ONE ON THE RIGHT UPPER ARM BY THE CHARGE NURSE.
--- NOTE | 2019-05-04 12:00 | NUR ---
NOTES-IN BED, NO ACUTE DISTRESS NOTED. TURIN AND REPOSITIONED
[2019-05-04 13:01] VITALS: BP_SYST 127
[2019-05-04] MEDS ORDERED: METOPROLOL TARTRATE 25 MG TABLET PO ONE (14:00)
--- NOTE | 2019-05-04 14:00 | NUR ---
MD ROUNDS SEEN BY DR. GIANG AND AWARE OF INCREASE HEART RATE AND AFIB ON THE MONITOR.
[2019-05-04] MEDS: AZITHROMYCIN 500 MG in NS 250 ML IV SCH (14:18)
[2019-05-04 14:32] LABS: ATYPICAL LYMPHOCYTES % 0 % (0-0); BAND % (MANUAL) 0 % (0-6); BASOPHILS % (MANUAL) 0 % (0-2); EOSINOPHILS % (MANUAL) 0 % (0-7); LYMPHOCYTES % (MANUAL) 7 % (20-46); MONOCYTES % (MANUAL) 5 % (0-11)
[2019-05-04 16:39] VITALS: BP_SYST 108
--- NOTE | 2019-05-04 18:13 | NUR ---
notes- Awake, family at bedside. refuses to eat dinner. IVF infusing well. All needs meet. No acute distress noted. will endorse
[2019-05-04 20:00] VITALS: BP_SYST 120
[2019-05-04] MEDS: METOPROLOL TARTRATE 25 MG TABLET PO SCH (20:51)
[2019-05-04] MEDS: ENOXAPARIN SODIUM 30 MG/0.3 ML SYRINGE SUBCUT SCH (20:59)
[2019-05-04] MEDS ORDERED: ZIPRASIDONE HCL 20 MG CAPSULE (GEODON) PO SCH (21:00)
[2019-05-04] MEDS: ZIPRASIDONE HCL 20 MG CAPSULE (GEODON) PO SCH (21:00)
--- NOTE | 2019-05-04 23:06 | NUR ---
Patient in bed. No acute distress noted. HOB elevated. Oxymizer on. Turned repositioned q2. Will continue to monitor.
[2019-05-05 01:57] VITALS: BP_SYST 119
[2019-05-05] MEDS: LevALBUTEROL HCL 1.25 MG/0.5 ML *CONC.* VIAL.NEB (XOPENEX CONC.) INH SCH ×6 (04:01→23:33)
[2019-05-05] MEDS: MEROPENEM 500 MG in NS 50 ML IV SCH ×3 (05:03→22:05)
[2019-05-05] MEDS: methylPREDNISolone SOD SUCC/PF 62.5 MG/ML VIAL IVP SCH ×3 (05:04→21:49)
[2019-05-05 06:17] LABS: BASOPHILS % (AUTO) 0.1 % (0.0-2.0); HEMATOCRIT 36.1 % (36-48); HEMOGLOBIN 11.9 g/dL (12.0-16.0); LYMPHOCYTES # (AUTO) 0.3 K/uL (1.0-5.5); LYMPHOCYTES % (AUTO) 5.3 % (20.5-51.5); MEAN CORPUSCULAR HEMOGLOBIN 30 pg (27-31); MEAN CORPUSCULAR HGB CONC 33 % (32-36); MEAN CORPUSCULAR VOLUME 91 fL (79.0-98.0); MONOCYTES # (AUTO) 0.3 K/uL (0.0-1.0); MONOCYTES % (AUTO) 4.9 % (1.7-9.3); NEUTROPHILS # (AUTO) 5.2 K/uL (1.8-7.7); NEUTROPHILS % (AUTO) 89.7 % (40.0-70.0); PLATELET COUNT (AUTO) 331 K/uL (130-430); RED BLOOD CELL COUNT(AUTO) 3.95 MIL/uL (4.2-6.2); RED CELL DISTRIBUTION WIDTH 13.9 % (9.0-15.0); WHITE BLOOD COUNT (AUTO) 5.8 K/uL (4.8-10.8)
--- NOTE | 2019-05-05 06:38 | NUR ---
Patient turned repositioned q2. O2 saturation 85%. Respiratory called to adjust BiPAP.
[2019-05-05 06:39] LABS: ANION GAP 2 (5-15); CALCIUM 8.3 mg/dL (8.4-11.0); CHLORIDE 97 mmol/L (98-107); CREATININE 0.35 mg/dL (0.55-1.30); GLUCOSE 125 mg/dL (70-99); POTASSIUM 3.8 mmol/L (3.5-5.1); SODIUM SERUM 134 mmol/L (136-145); UREA NITROGEN, BLOOD 9 mg/dL (8-21)
--- NOTE | 2019-05-05 07:00 | NUR ---
RT NOTES Pt off BIPAP and placed on 1L oxymizer per outstanding order. No adverse reactions noted.
[2019-05-05 08:00] VITALS: BP_SYST 117
--- NOTE | 2019-05-05 08:00 | NUR ---
AM ROUND PT STABLE NOT IN ACUTE DISTRESS .A/OX1. HOB ELEVATED. IVF INFUSING WELL L UPPER ARM #22 NO S/S OF INFILTRATIONS NOTED. VITALS STABLE . ON 2 L OXIMIZER SATURATIONS 96%. NOT IN RES DISTRESS. SAFETY AND FALL PRECAUTIONS. MAINTAINED. KEPT COMFORTABLE WILL CONTINUE TO MONITOR
[2019-05-05] MEDS: VALPROIC ACID 250 MG CAPSULE (DEPAKENE) PO SCH ×2 (09:38→21:49)
[2019-05-05] MEDS: DOCUSATE SODIUM 100 MG CAPSULE PO SCH (09:38)
[2019-05-05] MEDS: METOPROLOL TARTRATE 25 MG TABLET PO SCH ×2 (09:39→21:50)
[2019-05-05] MEDS: CHOLECALCIFEROL (VITAMIN D3) 2,000 UNIT TABLET PO SCH (09:40)
--- NOTE | 2019-05-05 12:30 | NUR ---
ROUNDS PT STABLE NOT IN ACUTE DISTRESS. REPOSITIONED WITH PILLOW. DAUGHTER AT BED SIDE. IVF INFUSING WELL. CALL LIGHT WITHIN REACH
[2019-05-05 13:29] VITALS: BP_SYST 112
--- NOTE | 2019-05-05 14:56 | NUR ---
Nutrition Note: Calorie Count RD was notified by pt's primary RN regarding plans for calorie count. RD implemented 72-hour calorie count order via [employer] that will start at dinner tonight. RD to continue to follow as per nutrition care standards.
[2019-05-05 17:14] VITALS: BP_SYST 111
--- NOTE | 2019-05-05 17:14 | NUR ---
ROUNDS PT STABLE NOT IN ACUTE DISTRESS. REPOSITIONED WITH PILLOW. SAFETY AND FALL PRECAUTIONS IN PLACE. DAUGHTER AT BED SIDE. IVF INFUSING WELL. CALL LIGHT WITHIN REACH
--- NOTE | 2019-05-05 18:08 | NUR ---
SOB PT C/O OF LITTLE SOB. O2 SAT 95%. BREATHING TX PROVIDED ORDERED.PT FELT BETTER. TYLENOL 650 MG PO GIVEN ORDER FOR FEVER 101.1. KEPT COMFORTABLE . ENCOURGED PO FLUIDS . WILL CONTINUE TO MONITOR Addendum: 05/05/19 at 1852 by Nat Goldsmith RN ABOVE NOTED ENNTERED WRONG FOR DIFFERENT PT
--- NOTE | 2019-05-05 18:53 | NUR ---
CLOSING NOTED PT STABLE NOT IN ACUTE DISTRESS. REPOSITIONED WITH PILLOW. SAFETY AND FALL PRECAUTIONS IN PLACE. DAUGHTER AT BED SIDE. IVF INFUSING WELL. CALL LIGHT WITHIN REACH
[2019-05-05 20:00] VITALS: BP_SYST 136
[2019-05-05] MEDS: ENOXAPARIN SODIUM 30 MG/0.3 ML SYRINGE SUBCUT SCH (21:51)
[2019-05-05] MEDS: ZIPRASIDONE HCL 20 MG CAPSULE (GEODON) PO SCH (22:07)
[2019-05-05] MEDS: KCL 20 mEq in D5/0.45NS 1000mL 1,000 ML IV SCH (22:07)
--- NOTE | 2019-05-05 23:12 | NUR ---
DR GIANG CALLED AND INFORMED ABOUT THE PATIENT,S HARD NON PRODUCTIVE COUGH UNABLE TO EXPECTORATE, MESSAGE LEFT WITH THE EXCHANGE , AWAITING RESPONSE
--- NOTE | 2019-05-06 01:00 | NUR ---
patient placed in bipa with rt setting and tolerating the procedure, adleep
[2019-05-06 01:48] VITALS: BP_SYST 101
[2019-05-06] MEDS: LevALBUTEROL HCL 1.25 MG/0.5 ML *CONC.* VIAL.NEB (XOPENEX CONC.) INH SCH ×6 (03:33→23:43)
[2019-05-06 04:00] VITALS: BP_SYST 136
--- NOTE | 2019-05-06 05:30 | NUR ---
bipap off and placed on oxymized at 3l/min. tolerated the procedure. hed of bed elevated 35 degrees
[2019-05-06] MEDS: MEROPENEM 500 MG in NS 50 ML IV SCH ×3 (05:40→21:22)
[2019-05-06] MEDS: methylPREDNISolone SOD SUCC/PF 62.5 MG/ML VIAL IVP SCH ×3 (05:40→21:24)
[2019-05-06 08:00] VITALS: BP_SYST 115
[2019-05-06] MEDS ORDERED: CEFAZOLIN 1 GM IVPB PREMIX 50 ML IV ONE (08:45)
[2019-05-06] MEDS: DOCUSATE SODIUM 100 MG CAPSULE PO SCH (09:00)
[2019-05-06] MEDS: CHOLECALCIFEROL (VITAMIN D3) 2,000 UNIT TABLET PO SCH (09:00)
[2019-05-06] MEDS: METOPROLOL TARTRATE 25 MG TABLET PO SCH ×2 (09:00→21:00)
[2019-05-06] MEDS: VALPROIC ACID 250 MG CAPSULE (DEPAKENE) PO SCH ×2 (09:00→21:00)
[2019-05-06 09:14] LABS: BASOPHILS % (AUTO) 0.3 % (0.0-2.0); HEMATOCRIT 38.1 % (36-48); HEMOGLOBIN 12.6 g/dL (12.0-16.0); LYMPHOCYTES # (AUTO) 0.2 K/uL (1.0-5.5); MEAN CORPUSCULAR HEMOGLOBIN 30 pg (27-31); MEAN CORPUSCULAR HGB CONC 33 % (32-36); MEAN CORPUSCULAR VOLUME 91 fL (79.0-98.0); MONOCYTES # (AUTO) 0.3 K/uL (0.0-1.0); NEUTROPHILS # (AUTO) 5.2 K/uL (1.8-7.7); NEUTROPHILS % (AUTO) 91.7 % (40.0-70.0); PLATELET COUNT (AUTO) 269 K/uL (130-430); RED BLOOD CELL COUNT(AUTO) 4.18 MIL/uL (4.2-6.2); WHITE BLOOD COUNT (AUTO) 5.7 K/uL (4.8-10.8)
[2019-05-06 09:17] LABS: CALCIUM 8.6 mg/dL (8.4-11.0); CHLORIDE 97 mmol/L (98-107); CREATININE 0.29 mg/dL (0.55-1.30); GLUCOSE 124 mg/dL (70-99); POTASSIUM 3.7 mmol/L (3.5-5.1); SODIUM SERUM 134 mmol/L (136-145); UREA NITROGEN, BLOOD 13 mg/dL (8-21)
[2019-05-06 09:20] LABS: ANION GAP < 3 (5-15)
--- NOTE | 2019-05-06 09:30 | NUR ---
Obtained surgical consent from daughter and she wanted to speak to doctor concerning procedure. Dr. madrid paged concerning daughters concerns. need clarification for procedure , also.
[2019-05-06 12:04] VITALS: BP_SYST 128
--- NOTE | 2019-05-06 13:58 | NUR ---
Nutrition F/U RD reviewed pt's current EMR including diet Hx, physician notes, nursing notes, pertinent labs/meds/procedures, care trends and care activity. Current Diet Order: Pureed diet x 2 days Subjective information: Pt seen sleeping in bed at time of RD visit. No records of PO intake for calorie count at bedside. Per [employer], pt is on NPO that's why she didn't feed pt for breakfast and lunch today. Per RN Sabrina, pt was put on NPO as pt is for GI consult for possible PEG placement. RD will continue to monitor. Current PO intake: N/A on NPO Estimated Energy Expenditure (kcals/day) 1050-1260kcal/day (25-30kcal/kg based on CBW for gradual wt gain promotion) Estimated Protein Required (g/day) 42-50g/day (1-1.2g/kg based on CBW for geriatric maintenance) Estimated Fluid Required (l/day) 1-1.3L/day based on CBW for maintenance Problem/Etiology/Signs/Symptoms Predicted suboptimal PO intake related to confusion as evidenced by PO intake meeting <75% of est nutrition needs. (*ongoing) Expected Outcomes/Goals Monitor provision of EN support and PO intake w/ goal of pt meeting at least 75% of estimated nutritional needs, labs trending WNL, normal GI function, skin integrity/wt maintenance. Dietitian Recommendations *Continue NPO. *Once PEG is in placea dn ready to use: consider Vital AF 1.2 at 40ml/hr(goal rate), FWF 100ml Q6H via GT Will provide: 1152 kcal, 72 gm protein and 1179ml free water daily. Will meet: 91% of upper end of est calorie needs and 144% of upper end of est protein needs. Follow Up High Risk: F/U in 2-3days
--- NOTE | 2019-05-06 14:12 | NUR ---
Dietitian Recommendations *Continue NPO. *Once PEG is in placea dn ready to use: consider Vital AF 1.2 at 40ml/hr(goal rate), FWF 100ml Q6H via GT Will provide: 1152 kcal, 72 gm protein and 1179ml free water daily. Will meet: 91% of upper end of est calorie needs and 144% of upper end of est protein needs. Please see Nutrition F/U note for details. JAIL, RD
--- NOTE | 2019-05-06 16:06 | NUR ---
PAGED DR SORIANO. SPOKE WITH MITZI
[2019-05-06 16:17] VITALS: BP_SYST 127
--- NOTE | 2019-05-06 16:26 | NUR ---
Paged Dr. Hung/Family concerns third page, the family is angry about the patient being NPO since breakfast today, it was explained to the family that the GI doctor ordered for NPO and G tube placement will be tomorrow morning.It was also explained that the patient is on IV fluids as well. The patient's family is shouting at one another at nursing station. The patient's family is at the nursing station, shouting and cursing at nurses and at [employer] [place], Dr. Lara was also paged, he stated he will be coming to see the patient today. It was also explained to the family that the consulting physicians have within 24 hours to see the patient. The patient's family called 911 from their cellphone. Charge nurse Elvis SWAIN spoke with the [facility]'s Department to explain the barriers and family concerns. Rubber Compounder Mixer [place] was made aware of the situation and [facility] Director was made aware of the situation. Hospital Security was called. Addendum: 05/06/19 at 1642 by Elvis Rosas RN Dr. Hung call back orders for Full liquids for dinner received, NPO after midnight. Attempted to the explain new orders to the family, the family continues to be agitated, security present at this time.
[2019-05-06 20:00] VITALS: BP_SYST 122
--- NOTE | 2019-05-06 20:02 | NUR ---
NOTED SATURATION 89%. REPOSITIONED AND RT IN FOR THE BREATHING TREATMENT, HEAD OF BED ELEVATED 35 DEGREES
--- NOTE | 2019-05-06 20:23 | NUR ---
DR GIANG PAGED THE PATIENT IS WITH WET COUGH NOT RELIEVED WITH BREATHING TREATMENT ,NEEDS ORDERS,.WILL BE NPO P MIDNIGHT FOR THE SCHEDULRED INSERTION OF GTUBE IN AM. CONSENT SIGNED
--- NOTE | 2019-05-06 20:34 | NUR ---
DR CARIASIUM IN AND INFORMED ABOUT THE PATIENT COUGH AND WITH ORDERS AND CARRIED OUT.
[2019-05-06] MEDS ORDERED: guaiFENesin 200 MG/10 ML UDC PO PRN (20:45)
[2019-05-06] MEDS: ENOXAPARIN SODIUM 30 MG/0.3 ML SYRINGE SUBCUT SCH (21:00)
[2019-05-06] MEDS: ZIPRASIDONE HCL 20 MG CAPSULE (GEODON) PO SCH (21:00)
[2019-05-06] MEDS: KCL 20 mEq in D5/0.45NS 1000mL 1,000 ML IV SCH (21:27)
--- NOTE | 2019-05-06 22:30 | NUR ---
asleep medications not given.georgi held for the ordered procedure in am Addendum: 05/06/19 at 2231 by [facility] Arsenio SWAIN consent signed . npo p midnight for the ordered procedure
--- NOTE | 2019-05-06 22:33 | NUR ---
GEODON DOSE HELD THE PATIRNT IS ASLEEP.
--- NOTE | 2019-05-06 22:38 | NUR ---
ancef dose orderedto be given 30 minutes before peg placement .not due
--- NOTE | 2019-05-07 00:09 | NUR ---
NPO FOR THE ORDERED PROCEDURE AND MAINTAINED
[2019-05-07 01:48] VITALS: BP_SYST 100
[2019-05-07] MEDS: LevALBUTEROL HCL 1.25 MG/0.5 ML *CONC.* VIAL.NEB (XOPENEX CONC.) INH SCH ×5 (02:39→21:00)
[2019-05-07 04:00] VITALS: BP_SYST 130
[2019-05-07] MEDS: MEROPENEM 500 MG in NS 50 ML IV SCH (05:37)
[2019-05-07] MEDS: methylPREDNISolone SOD SUCC/PF 62.5 MG/ML VIAL IVP SCH ×3 (05:47→21:39)
--- NOTE | 2019-05-07 06:27 | NUR ---
NPO AND MAINTAINED ,GI LAB CALLED THE SCHEDULE IS 0700 HOURS, CONSENT IS SIGNED,
[2019-05-07] MEDS ORDERED: fentaNYL CITRATE/PF 100 MCG/2 ML AMP ONE ×2 (06:43→07:40)
[2019-05-07] MEDS ORDERED: MIDAZOLAM HCL 5 MG/5 ML VIAL ONE (06:44)
[2019-05-07] MEDS ORDERED: SIMETHICONE 40 MG/0.6 ML ML ONE (06:44)
--- NOTE | 2019-05-07 07:02 | NUR ---
to the gi lab per nbed with the gi nurse or the scheduled procedure.onbsent is signed,
--- NOTE | 2019-05-07 07:04 | NUR ---
levothyroxine dfose not given as the patient picc line is non functional and swollen.Dr Nj informed that the ivf was not resumed as the picc line rn is not yet in.npo.
[2019-05-07 07:23] LABS: BASOPHILS % (AUTO) 0.1 % (0.0-2.0); HEMATOCRIT 33.5 % (36-48); HEMOGLOBIN 11.1 g/dL (12.0-16.0); LYMPHOCYTES # (AUTO) 0.2 K/uL (1.0-5.5); LYMPHOCYTES % (AUTO) 4.3 % (20.5-51.5); MEAN CORPUSCULAR HEMOGLOBIN 30 pg (27-31); MEAN CORPUSCULAR HGB CONC 33 % (32-36); MEAN CORPUSCULAR VOLUME 91 fL (79.0-98.0); MONOCYTES # (AUTO) 0.3 K/uL (0.0-1.0); MONOCYTES % (AUTO) 5.2 % (1.7-9.3); NEUTROPHILS # (AUTO) 4.8 K/uL (1.8-7.7); NEUTROPHILS % (AUTO) 90.4 % (40.0-70.0); PLATELET COUNT (AUTO) 238 K/uL (130-430); RED CELL DISTRIBUTION WIDTH 14.2 % (9.0-15.0); WHITE BLOOD COUNT (AUTO) 5.3 K/uL (4.8-10.8)
[2019-05-07] MEDS ORDERED: MIDAZOLAM HCL 2 MG/2 ML VIAL (VERSED) ONE (07:40)
[2019-05-07 07:44] LABS: CHLORIDE 99 mmol/L (98-107); CREATININE 0.28 mg/dL (0.55-1.30); GLUCOSE 108 mg/dL (70-99); INR 1.1 (0.8-1.2); POTASSIUM 4.4 mmol/L (3.5-5.1); PROTHROMBIN TIME 11.3 SECS (9.5-12.5); SODIUM SERUM 138 mmol/L (136-145); UREA NITROGEN, BLOOD 12 mg/dL (8-21)
[2019-05-07 07:53] LABS: ANION GAP < 3 (5-15)
--- NOTE | 2019-05-07 08:00 | NUR ---
REPORT FROM MANAGER CUSTOMS PATIENT IN GI LAB UNDERGOING PEG PLACEMENT , GOT A CRITICAL LAB RESULT CO2 AND PAGED DR MONDRAGON
--- NOTE | 2019-05-07 08:30 | NUR ---
CRITICAL LABS CRITICAL ABG REPORT TO DR MONDRAGON WITH ORDERS NOTED , AT THIS TIME PATIENT SATING 99% WITH 3 L/MIN VIA NC
[2019-05-07] MEDS: DOCUSATE SODIUM 100 MG CAPSULE PO SCH (09:00)
--- NOTE | 2019-05-07 09:45 | NUR ---
RETURN FROM GI REPORT GIVEN BY GI NURSE PLACED IN BED , VERBAL BUT SLEEPY , SATING 95% , BP 133/89 TEMP 97 19 T-98% PULSE 89, RT CAME BY ABEduardo DONE WILL FOLLOW UP RESULT AND REPORT TO PULMONOLOGY Addendum: 05/07/19 at 1110 by Noemi London RN DR SORIANO ROUNDS DR SORIANO CAME AND ORDERS NOTED , GTUBE FEEDING TO START 4PM START WITH 10 CC INCREMENT Q2H TO REACH 50CC/HR , DTR ROXANNE INFORMED PATIENT CONDITION Addendum: 05/07/19 at 1111 by Noemi London RN MEDS DR SORIANO SAID OK TO GIVE THE IMPORTANT MEDS WITH GTUBE FOR NOW D/T PATIENT CONDITION
[2019-05-07 10:00] VITALS: BP_SYST 148
[2019-05-07] MEDS: CHOLECALCIFEROL (VITAMIN D3) 2,000 UNIT TABLET PO SCH (10:24)
[2019-05-07] MEDS: VALPROIC ACID 250 MG CAPSULE (DEPAKENE) PO SCH ×2 (10:25→21:39)
[2019-05-07] MEDS: METOPROLOL TARTRATE 25 MG TABLET PO SCH ×2 (10:26→21:00)
[2019-05-07 12:24] VITALS: BP_SYST 147
--- NOTE | 2019-05-07 12:31 | NUR ---
ROUNDS PATIENT IN BED VERBALLY RESPONSIVE SATING 100% to 3l/min via nc NO COMPLAIN OF PAIN
--- NOTE | 2019-05-07 13:46 | NUR ---
DR RAHAT MARINELLI CAME INFORMED PATIENT HAD GTUBE PLACEMENT TOLERATED AND WILL START GTUBE FEEDING THIS 4PM . HE WILL CONT WITH PLAN OF CARE AND ORDERS NOTED
--- NOTE | 2019-05-07 15:50 | NUR ---
PAM MARINELLI FOR PAIN PATIENT COMPLAIN OF PAIN , KAYLIN OROZCO MD AND WILL GIVE ONCE MD RETURN CALL, ALSO INFORMED CM TO COME AND SEE PATIENT DAUGHTER AT BEDSIDE
[2019-05-07 16:25] VITALS: BP_SYST 138
[2019-05-07] MEDS: KCL 20 mEq in D5/0.45NS 1000mL 1,000 ML IV SCH (16:31)
--- NOTE | 2019-05-07 16:50 | NUR ---
GTUBE FEEDING STARTED GTUBE STARTED ON 10 CC INCREMENT OF 10 AFTER 2 HOURS TO REACH THE GOAL OF 50 CC /HR , DAUGHTER AT BEDSIDE
--- NOTE | 2019-05-07 17:10 | NUR ---
ENDORSEMENT WILL CONT CARE WILL CONT WITH GTUBE 10 CC INCREMENT AND WILL MONITOR TOLERANCE,PAGED DR CHILD AGAIN FOR THE PAIN MEDS , BUT PATIENT IS SLEEPING A THIS TIME Addendum: 05/07/19 at 1752 by Noemi London RN ADDENDUM TO ENDORSEMENT PATIENT SLEEPING A THIS TIME NO FACIAL GRIMACE NOTED, PATIENT TOLERATING GTUBE FEEDING AND FLUSHING,DAUGHTER WANTS PATIENT TO BE DC IN AM BACK TO SNF Addendum: 05/07/19 at 1811 by Noemi London RN DR GIANG/PAIN MEDS RETURN CALL AND INFORMED ABOUT PAIN MEDS WITH ORDER FOR MORPHINE IV , PATIIENT SLEEPING AT THIS TIME
[2019-05-07] MEDS ORDERED: MORPHINE 2 MG/ML INJ. SYRINGE IVP PRN (18:00)
[2019-05-07 20:00] VITALS: BP_SYST 106
--- NOTE | 2019-05-07 20:00 | NUR ---
ASSUMED CARE. RECEIVED ALERT,CONFUSED. AFEBRILE, NOT IN ACUTE DISTRESS. NO PAIN OR DISCOMFORT NOTED. WITH IV FLUID D5 1/2 NS + KCL 20 MEQ INFUSING AT 100 ML/HR VIA RIGHT UPPER ARM #20 IV LINE. DANG CATHETER DRAINING CLEAR YELLOW URINE. G-TUBE FEEDING JEVITY 1.2 INCREASED IN INCREMENTS OF 10 ML/HR TO 30 ML/HR. SAO2=93% ON 3 LPM O2 VIA NC. SINUS RHYTHM AT 70'S/MINUTE ON THE MONITOR. VS STABLE, WILL CONTINUE TO MONITOR. NEEDS ATTENDED. Addendum: 05/08/19 at 0309 by [employer] kaiako kura tuarua CORRECTION: IV FLUID RATE IS 50 ML/HR NOT 100 ML/HR.
[2019-05-07] MEDS: ZIPRASIDONE HCL 20 MG CAPSULE (GEODON) PO SCH (21:39)
--- NOTE | 2019-05-07 21:39 | NUR ---
METOPROLOL TARTRATE 25 MG PO NOT GIVEN DUE TO ZW=501/51. ALL OTHER DUE MEDICATIONS GIVEN.
[2019-05-07] MEDS: ENOXAPARIN SODIUM 30 MG/0.3 ML SYRINGE SUBCUT SCH (21:41)
--- NOTE | 2019-05-07 22:00 | NUR ---
G-TUBE FEEDING INCREASED TO 40 ML/HR.
--- NOTE | 2019-05-08 | NUR ---
AWAKE, NOT IN ANY KIND OF DISTRESS. NO PAIN OR DISCOMFORT NOTED. FEEDING INCREASED TO THE TARGET RATE OF 50 ML/HR. SIDE RAILS UP, CALL LIGHT WITHIN REACH. KEPT WARM AND COMFORTABLE. VS REMAIN STABLE.
[2019-05-08 00:07] VITALS: BP_SYST 113
--- NOTE | 2019-05-08 01:00 | NUR ---
IV SITE NOTED TO BE LEAKING. GAUGE 22 IV LINE ESTABLISHED TO THE LEFT FOREARM. OLD IV LINE DISCONTINUED.
--- NOTE | 2019-05-08 04:00 | NUR ---
ASLEEP, NOT IN ACUTE DISTRESS. PT. REMAINS STABLE AND PAIN FREE.
[2019-05-08] MEDS: methylPREDNISolone SOD SUCC/PF 62.5 MG/ML VIAL IVP SCH ×2 (06:00→13:42)
--- NOTE | 2019-05-08 06:00 | NUR ---
ASLEEP, DUE MEDICATION GIVEN SCHEDULED.
--- NOTE | 2019-05-08 07:17 | NUR ---
ENDORSED CARE TO KULDEEP WEAVER.
[2019-05-08 08:00] VITALS: BP_SYST 121
--- NOTE | 2019-05-08 08:00 | NUR ---
RN INITIAL NOTES RECEIVED PATIENT IN BED AWAKE AND VERBAL BUT STOW , IVF TO LEFT ARM INFUSING ORDERED , GTUBE IS TOLERATED, DR SORIANO CAME AND SAID HE IS CLEARING PATIENT IF THE PCP WILL DC PATIENT
[2019-05-08] MEDS: LevALBUTEROL HCL 1.25 MG/0.5 ML *CONC.* VIAL.NEB (XOPENEX CONC.) INH SCH ×4 (08:30→23:37)
[2019-05-08 09:18] LABS: BASOPHILS % (AUTO) 0.3 % (0.0-2.0); HEMATOCRIT 38.5 % (36-48); HEMOGLOBIN 12.7 g/dL (12.0-16.0); LYMPHOCYTES # (AUTO) 0.1 K/uL (1.0-5.5); LYMPHOCYTES % (AUTO) 0.9 % (20.5-51.5); MEAN CORPUSCULAR HEMOGLOBIN 30 pg (27-31); MEAN CORPUSCULAR HGB CONC 33 % (32-36); MEAN CORPUSCULAR VOLUME 91 fL (79.0-98.0); MONOCYTES # (AUTO) 0.3 K/uL (0.0-1.0); MONOCYTES % (AUTO) 3.7 % (1.7-9.3); NEUTROPHILS # (AUTO) 7.9 K/uL (1.8-7.7); NEUTROPHILS % (AUTO) 95.1 % (40.0-70.0); PLATELET COUNT (AUTO) 265 K/uL (130-430); RED BLOOD CELL COUNT(AUTO) 4.25 MIL/uL (4.2-6.2); WHITE BLOOD COUNT (AUTO) 8.3 K/uL (4.8-10.8)
[2019-05-08 09:33] LABS: CALCIUM 8.4 mg/dL (8.4-11.0); CHLORIDE 97 mmol/L (98-107); CREATININE 0.33 mg/dL (0.55-1.30); GLUCOSE 172 mg/dL (70-99); POTASSIUM 4.1 mmol/L (3.5-5.1); SODIUM SERUM 135 mmol/L (136-145); UREA NITROGEN, BLOOD 16 mg/dL (8-21)
[2019-05-08 09:41] LABS: ANION GAP < 3 (5-15)
[2019-05-08] MEDS: DOCUSATE SODIUM 100 MG CAPSULE PO SCH (09:42)
[2019-05-08] MEDS: METOPROLOL TARTRATE 25 MG TABLET PO SCH ×2 (09:43→21:45)
[2019-05-08] MEDS: CHOLECALCIFEROL (VITAMIN D3) 2,000 UNIT TABLET PO SCH (09:43)
[2019-05-08] MEDS: VALPROIC ACID 250 MG CAPSULE (DEPAKENE) PO SCH ×2 (09:44→21:45)
--- NOTE | 2019-05-08 10:35 | NUR ---
HI CO2 DR MONDRAGON RETURNED CALL ORDERED FOR DIAMOX 500MG IV XI , PATIENT SATING 96% ON 3 LITER
[2019-05-08] MEDS ORDERED: *TPN PER PHARMACY XX PRN (10:45)
[2019-05-08 11:32] LABS: PHOSPHORUS 2.2 mg/dL (2.7-4.5)
[2019-05-08 11:33] VITALS: BP_SYST 115
--- NOTE | 2019-05-08 12:00 | NUR ---
DR MONDRAGON PILE TRIMMER RETURN CALL AND ORDERED DIAMOX FOR ABNORMAL CO2, TOLERATING GTUBE NO ASPIRATION NOTED
[2019-05-08] MEDS: KCL 20 mEq in D5/0.45NS 1000mL 1,000 ML IV SCH (12:16)
--- NOTE | 2019-05-08 14:00 | NUR ---
DAUGHTER CALLED DTR CALLED AND VERIFIED OF THERES A DISCHARGE ORDER, INFORMED DAUGHTER ONCE MD COME AND WILL MAKE HIS ROUNDS TO THE STATION WILL NOTIFY
--- NOTE | 2019-05-08 15:30 | NUR ---
MD ROUNDS CAME INFORMED PATIENT'S DAUGHTER WANTS TO SPEAK WITH HIM , LEFT A MESSAGE WITH THE DTR , FOR DC TO SNF
[2019-05-08 15:56] VITALS: BP_SYST 146
--- NOTE | 2019-05-08 17:32 | NUR ---
CALLED [facility] TO FOLLOW UP BED PLACEMENT FOR TODAY. SPOKE TO AUBREE AND DENIED THE TRANSFER FOR THEIR FABRIC CUTTER AND DON ARE BOTH GONE FOR THE DAY. REQUEST FOR A BED WILL BE FORWARDED TOMORROW.
--- NOTE | 2019-05-08 17:50 | NUR ---
NO BED /D PAGED DR CHILD PAGED TO INFORMED THAT NO ADMISSION COORDINATOR AND NO DON IN THE BUILDING , PER STAFF THEY WILL FORWARD THE REQUEST OF READMISSION IN AM AWAITING FOR MD TO CALL BACK
--- NOTE | 2019-05-08 18:30 | NUR ---
MD RETURN CALL DR GARCIA RETURNED CALL AND MADE AWARE OF THE PATIENT SITUATION NO BED AVAILABLE AND WILL PROCESS DC IN AM , ORDERED HOLD DC IRINA , WILL DC PATIENT IN AM
--- NOTE | 2019-05-08 18:44 | NUR ---
ENDORSEMENT PATIENT IN BED NO DISTRESS , TOLERATING GTUBE FEEDING ,HOB ELEVATED AND NO RESIDUAL NOTED , FLUSHING DONE , CALLED DAUGHTER TRISHA MADE AWARE THAT DC IS HELD FOR TONIGHT , WILL DC IN AM ,NO COMPLAIN OF PAIN , WILL CONT CARE , DRESSING INTACT TO BUTTOCKS
[2019-05-08 20:00] VITALS: BP_SYST 135
--- NOTE | 2019-05-08 20:00 | NUR ---
RECEIVED PT IN BED V/S AND ASSESSMENT DONE SAME STABLE ,PM CARE GIVEN UROSTOMY IN PLACE REPOSITIONED MADE COMFORTABLE,G TUBE WITH JEVITY 1.[address] AT 50 CC HR,NO DISTRESS NOTED AT THIS TIME
[2019-05-08] MEDS: ENOXAPARIN SODIUM 30 MG/0.3 ML SYRINGE SUBCUT SCH (21:44)
[2019-05-08] MEDS: PREDNISONE 20 MG TABLET GT SCH (21:45)
[2019-05-08] MEDS: ZIPRASIDONE HCL 20 MG CAPSULE (GEODON) PO SCH (22:05)
[2019-05-09] VITALS: BP_SYST 140
--- NOTE | 2019-05-09 | NUR ---
PT REPOSITIONED FROM SIDE TO SIDE MADE COMFORTABLE.
[2019-05-09] MEDS: LevALBUTEROL HCL 1.25 MG/0.5 ML *CONC.* VIAL.NEB (XOPENEX CONC.) INH SCH ×6 (03:27→23:34)
[2019-05-09 04:00] VITALS: BP_SYST 136
--- NOTE | 2019-05-09 04:00 | NUR ---
PT REPOSITIONED FROM SIDE TO SIDE NO DISTRESS NOTED AT THIS TIME .
[2019-05-09 07:14] LABS: BASOPHILS % (AUTO) 0.2 % (0.0-2.0); HEMATOCRIT 36.2 % (36-48); LYMPHOCYTES # (AUTO) 0.1 K/uL (1.0-5.5); LYMPHOCYTES % (AUTO) 1.2 % (20.5-51.5); MEAN CORPUSCULAR HEMOGLOBIN 30 pg (27-31); MEAN CORPUSCULAR HGB CONC 33 % (32-36); MEAN CORPUSCULAR VOLUME 91 fL (79.0-98.0); MONOCYTES # (AUTO) 0.6 K/uL (0.0-1.0); MONOCYTES % (AUTO) 5.9 % (1.7-9.3); NEUTROPHILS # (AUTO) 9.2 K/uL (1.8-7.7); NEUTROPHILS % (AUTO) 92.7 % (40.0-70.0); PLATELET COUNT (AUTO) 230 K/uL (130-430); RED BLOOD CELL COUNT(AUTO) 3.96 MIL/uL (4.2-6.2); RED CELL DISTRIBUTION WIDTH 14.4 % (9.0-15.0); WHITE BLOOD COUNT (AUTO) 9.9 K/uL (4.8-10.8)
[2019-05-09 07:50] VITALS: BP_SYST 117
--- NOTE | 2019-05-09 07:50 | NUR ---
INITIAL ROUNDS Received pt Awake, oriented to self with no s/s resp distress, no s/s pain or discomfort-pt just stated she was cold-pt given a warm blanket. Jevity 1.5 infusing well via G-Tube at 50 ml/hr with no residual noted. HOB elevated for aspiration precautions. Beltran draining to gravity with yellow urine. Pt repositioned with pillow support and heels off-loaded for skin care and comfort. Side rails up x3, bed alarm on, room close to nursing station for safety.
[2019-05-09 08:49] LABS: ALANINE AMINOTRANSFERASE 52 U/L (12-78); ALBUMIN 2.4 g/dL (3.4-4.8); ANION GAP 2 (5-15); ASPARTATE AMINOTRANSFERASE 25 U/L (10-37); CHLORIDE 100 mmol/L (98-107); CREATININE 0.27 mg/dL (0.55-1.30); GLUCOSE 109 mg/dL (70-99); PHOSPHORUS 2.4 mg/dL (2.7-4.5); POTASSIUM 3.6 mmol/L (3.5-5.1); SODIUM SERUM 137 mmol/L (136-145); TOTAL BILIRUBIN 0.3 mg/dL (0.0-1.0); UREA NITROGEN, BLOOD 18 mg/dL (8-21)
[2019-05-09 09:16] LABS: CALCIUM 8.2 mg/dL (8.4-11.0)
[2019-05-09] MEDS: PREDNISONE 20 MG TABLET GT SCH ×2 (09:37→20:18)
[2019-05-09] MEDS: DOCUSATE SODIUM 100 MG CAPSULE PO SCH (09:37)
[2019-05-09] MEDS: CHOLECALCIFEROL (VITAMIN D3) 2,000 UNIT TABLET PO SCH (09:37)
[2019-05-09] MEDS: VALPROIC ACID 250 MG CAPSULE (DEPAKENE) PO SCH ×2 (09:37→20:18)
[2019-05-09] MEDS: METOPROLOL TARTRATE 25 MG TABLET PO SCH ×2 (09:38→20:18)
--- NOTE | 2019-05-09 10:18 | NUR ---
ROUNDS Pt resting quietly in bed with no s/s resp distress, noted non-productive cough, no c/o pain or discomfort. Pt repositioned with pillow support and heels off-loaded. All precautions remain in place.
--- NOTE | 2019-05-09 10:46 | NUR ---
Case mgt: I saw order for dc--I called [facility]-[phone]--s/w Amado--he needs snf packet faxed to him--packet being faxed now to fax#[phone]--Nurse Greenwood made aware--I called daughter Niru Swain at [phone] and informed her of dc order, IM Medicare notice and that I had contacted [facility] this am to f/u for bed today--Niru is agreeable for transfer back to [facility] and doesn't want snf choice list. Waiting to hear back from Amado at [facility]--no isolation noted per nurse Greenwood. IVORY SWAIN Addendum: 05/09/19 at 1133 by Sandra Booth RN Nurse Greenwood is checking with RT re: tobias at [facility]--Krystyna will call me back---IVORY SWAIN Addendum: 05/09/19 at 1139 by Sandra Booth RN Faxing bipap settings from 05/09/19 at 0338 to Amado at [facility] fax#[phone]--Amado indicates if pt needs bipap, he cannot order that on a weekend. IVORY SWAIN
[2019-05-09 12:38] VITALS: BP_SYST 114; BP_SYST 95
--- NOTE | 2019-05-09 13:00 | NUR ---
Nutrition F/U RD reviewed pt's current EMR including diet Hx, physician notes, nursing notes, pertinent labs/meds/procedures, care trends and care activity. Current Nutrition Support: Glucerna 1.5 at 30 ml/hr, Free Water Flush: 100 via NGT x1 day Subjective information: Pt had GT placement 05/07/19 per EMR records. Pt was sleeping w/ Jevity 1.5 infusing at 50 ml/hr at time of RD visit. Per RN, active TF order for Glucerna 1.5 was intended for a different pt, and that Jevity 1.5 at 50 ml/hr is the true TF order; pt has no Hx of DM and pt has well-controlled BG levels. RN stated that pt has been tolerating TF well, no residuals, and pending D/C planning. TF regimen Jevity 1.5 at 50 ml/hr provides 1800 kcal/day, 77 gm protein/day, and 912 ml free water/day -- this meets 122% of upper end of estimated nutritional needs. Bedscale wt taken: 93# -- c/w admission wt of 92#. NEW Estimated Energy Expenditure (kcals/day) 3411-2102 kcal/day (30-35 kcal/kg based on CBW for gradual wt gain promotion) NEW Estimated Protein Required (g/day) 50-63 g/day (1.2-1.5 g/kg based on CBW for gradual wt gain promotion) Estimated Fluid Required (l/day) 1-1.3L/day based on CBW for maintenance Problem/Etiology/Signs/Symptoms Predicted suboptimal PO intake related to confusion as evidenced by PO intake meeting <75% of est nutrition needs. *no longer applicable Excessive EN support related to possible overfeeding as evidenced by current TF regimen exceeds 122% of upper end of estimated nutritional requirements. Expected Outcomes/Goals Monitor provision of EN support and PO intake w/ goal of pt meeting at least 75% of estimated nutritional needs, labs trending WNL, normal GI function, skin integrity/wt maintenance. Dietitian Recommendations * Recommend Jevity 1.5 at 40 ml/hr, Free Water Flush: 100 ml Q6h via GT Provides: 1400 kcal/day, 61 gm protein/day, and 1130 ml free water/day Meets: 98% of upper end of estimated caloric needs and 97% of upper end of estimated protein needs Follow Up High Risk: F/U in 2-3 days
--- NOTE | 2019-05-09 13:09 | NUR ---
Dietitian Recommendations * Recommend Jevity 1.5 at 40 ml/hr, Free Water Flush: 100 ml Q6h via GT Provides: 1400 kcal/day, 61 gm protein/day, and 1130 ml free water/day Meets: 98% of upper end of estimated caloric needs and 97% of upper end of estimated protein needs LP, RD Please refer to Nutrition F/U for details.
--- NOTE | 2019-05-09 14:17 | NUR ---
ROUNDS/ Pt resting quietly in bed with no s/s resp distress, no c/o pain or discomfort. Pt seen by Dr. Solorio earlier-he updated pt's daughter on plan of care. I spoke with pt's daughter regarding the transfer-may be on hold until Saturday due to Bipap use at night. Noted Dr. Solorio placed the Bipap use as PRN only tonight. All precautions remain in place.
--- NOTE | 2019-05-09 14:37 | NUR ---
Case mgt: I called daughter Niru and let her know pt cannot go to [facility] until 05/11/19 (when [facility] can get the bipap machine delivered.)
--- NOTE | 2019-05-09 16:12 | NUR ---
WOUND CARE Dressing to sacral area removed, area cleansed with normal saline, z-guard applied to periwound. Covered with foam dressing. Wound measures 0.5 cm x 0.5 cm, 100% dark red scab, no drainage, no odor. Pt tolerated well.
[2019-05-09 16:28] VITALS: BP_SYST 125
--- NOTE | 2019-05-09 18:25 | NUR ---
CLOSING NOTE Pt resting quietly in bed with no s/s resp distress, no c/o pain or discomfort. Jevity 1.5 infusing well at 40 ml/hr via g-tube with no residual noted. Aspiration, skin and safety precautions remain in place. Pt's son at bedside. Call light within reach.
--- NOTE | 2019-05-09 20:00 | NUR ---
received pt in bed v/s and assessmnet done same stable ,pm care bath given repositioned ,gtube feed in place andre draining clear urine,no distress noted
[2019-05-09] MEDS: ZIPRASIDONE HCL 20 MG CAPSULE (GEODON) PO SCH (20:19)
[2019-05-09] MEDS: ENOXAPARIN SODIUM 30 MG/0.3 ML SYRINGE SUBCUT SCH (20:22)
[2019-05-09] MEDS ORDERED: KCL 20 mEq in 0.45% NS 1000 mL 1,000 ML IV SCH (20:30)
[2019-05-10] VITALS: BP_SYST 115
--- NOTE | 2019-05-10 | NUR ---
repositioned no distress noted
[2019-05-10 00:08] VITALS: BP_SYST 103
[2019-05-10] MEDS: LevALBUTEROL HCL 1.25 MG/0.5 ML *CONC.* VIAL.NEB (XOPENEX CONC.) INH SCH ×4 (03:33→15:22)
--- NOTE | 2019-05-10 04:00 | NUR ---
pt repositioned made comfortable .am care given,andre emptied ,iv fluids infusing well
[2019-05-10 08:05] VITALS: BP_SYST 126
[2019-05-10] MEDS: PREDNISONE 20 MG TABLET GT SCH (08:55)
[2019-05-10] MEDS: METOPROLOL TARTRATE 25 MG TABLET PO SCH (08:55)
[2019-05-10] MEDS: VALPROIC ACID 250 MG CAPSULE (DEPAKENE) PO SCH (08:56)
[2019-05-10] MEDS: CHOLECALCIFEROL (VITAMIN D3) 2,000 UNIT TABLET PO SCH (08:56)
[2019-05-10] MEDS: DOCUSATE SODIUM 100 MG CAPSULE PO SCH (08:56)
--- NOTE | 2019-05-10 10:08 | NUR ---
ROUNDS Pt resting quietly in bed with eyes open, no s/s resp distress, no c/o pain or discomfort. Pt stated she is warm enough. Pt repositioned with pillow support and heels off-loaded for skin care. All precautions remain in place.
--- NOTE | 2019-05-10 11:25 | NUR ---
INITIAL ROUNDS Received pt Awake, oriented to self with no s/s resp distress, no c/o pain or discomfort. Jevity 1.5 infusing well via G-Tube at 40 ml/hr with no residual noted. HOB elevated for aspiration precautions. Beltran draining to gravity with yellow urine. IVF infusing well at ordered rate with no s/s infiltration to site. Pt repositioned with pillow support and heels off-loaded for skin care and comfort. Side rails up x3, bed alarm on, room close to nursing station for safety. Call light within reach. Addendum: 05/10/19 at 1127 by Ratna Johnson RN INITIAL ROUNDS DONE AT 0805-DOCUMENTED LATE DUE TO PT CARE.
--- NOTE | 2019-05-10 11:52 | NUR ---
Discharge Planning Received a call from Amado at [facility], p [phone], f [phone]. Bipap was delivered last night. They are awaiting arrival of patient. Assigned to room 35A. Patient can come any time. Notified Ratna SWAIN. Need discharge order. Addendum: 05/10/19 at 1355 by Leanne Montenegro LCSW DC order obtained. Return to [facility] room 35A. Call report [phone] Medic-[facility] 16:00. [phone] Packet will be placed in the nurses' station. Notified daughter, Niru Flores [phone]. Ratna SWAIN notified
[2019-05-10 12:00] VITALS: BP_SYST 120
[2019-05-10 12:12] VITALS: BP_SYST 123
--- NOTE | 2019-05-10 13:25 | NUR ---
DANG D/C Pt's Dang removed.
--- NOTE | 2019-05-10 15:25 | NUR ---
ROUNDS Pt resting quietly in bed with no s/s resp distress, no c/o pain or discomfort. Pt void small amount of yellow urine. All precautions remain in place.
[2019-05-10 16:23] VITALS: BP_SYST 123
--- NOTE | 2019-05-10 16:25 | NUR ---
PT TRANSFERRED Report given to Jessie SWAIN at [facility]. Transfer packet with Transfer Orders and Medication Reconciliation form given to EMT with report. Exitcare provided. [facility] ID band removed, replaced with ID band with pt's name and . G-tube flushed and clambed. IV catheter removed, intact and dressing applied, no active bleeding. All belongings sent with patient. Patient left floor via gurney escorted by EMT in no distress.
== END 2019-05-10 16:25 | DRG 871 ==
LOC: SED 08:04 → STU 11:27
PROVIDERS: ADMIT Family Medicine; ATTEND Family Medicine
PROC: 5A09357 Assistance with Respiratory Ventilation, Less than 24 Consecutive Hours, Continuous Positive Airway Pressure (ICD-10-PCS; principal; 2019-04-30)
PROC: 0DH63UZ Insertion of Feeding Device into Stomach, Percutaneous Approach (ICD-10-PCS; 2019-05-07)
DX: A41.9 Sepsis, unspecified organism (principal); J69.0 Pneumonitis due to inhalation of food and vomit; J96.01 Acute respiratory failure with hypoxia; E43 Unspecified severe protein-calorie malnutrition; N39.0 Urinary tract infection, site not specified; J44.1 Chronic obstructive pulmonary disease with (acute) exacerbation; Z68.1 Body mass index [BMI] 19.9 or less, adult; I47.1 Supraventricular tachycardia; D64.9 Anemia, unspecified; F02.80 Dementia in other diseases classified elsewhere, unspecified severity, without behavioral disturbance, psychotic disturbance, mood disturbance, and anxiety; G30.9 Alzheimer's disease, unspecified; R13.10 Dysphagia, unspecified; E86.0 Dehydration; F31.9 Bipolar disorder, unspecified; R62.7 Adult failure to thrive; Z87.891 Personal history of nicotine dependence; Z79.899 Other long term (current) drug therapy
CPT/HCPCS: 36415; 36600; 43246; 71045; 71250-TC; 80048; 80053; 81000-TC; 82803-TC; 83605; 83735-TC; 83880; 84100-TC; 84478-TC; 84484; 85007; 85025; 85027; 85610-TC; 85730-TC; 86710; 87040-TC; 87081; 87086; 87186-TC; 92610-GN; 93306; 94640; 94660; 94760; 96361; 96374; 99291; G0378; J0456; J0690; J0696; J1120; J1650; J2185; J2250; J2930; J3010; J3465; J3480; J7030; J7050; J7512; J7612; J7620

== ENCOUNTER 2019-06-10 09:00 | Inpatient (IN) | payer OTHER ==
[~2019-06-10] VITALS: Ht 162.6 cm; Wt 39.9 kg
[~2019-06-10 09:00] MED LIST changes: -ALBU8.5H8 INH; +DOCU-144 PO; -DOCU250C14 PO; -FLUT1DIS3 IH; -GEO40 PO
--- NOTE | 2019-06-10 09:00 | NUR ---
BIB sq [facility] from [facility]. Placed in room 08. Placed on registered nurse cardiac, blood pressure machine and pulse oximeter. To gown for exam. Side rails up.
--- NOTE | 2019-06-10 09:01 | NUR ---
PT BIB ACLS to ER C/O fever. Patient BIB from [facility] A&Ox1, on 10 LPM oxygen via mask, skin pink and hot to touch, febrile, denies pain denies N/V/D, cough present. Patient pulse-ox saturations 94% on 15 lpm mask, RT Tammy at bedside upon arrival. Patient has multiple purple discolorations to right forearm, right hand, left hand and left wrist to forearm, bilat upper and lower limb contractures.
--- NOTE | 2019-06-10 09:01 | NUR ---
GT tube in place, clamped
--- NOTE | 2019-06-10 09:17 | NUR ---
Phleb at bedside for blood draw.
[2019-06-10 09:20] VITALS: BP_SYST 128
--- NOTE | 2019-06-10 09:48 | NUR ---
ER Dr. Davenport at bedside examining patient.
[2019-06-10] MEDS ORDERED: NACL 0.9% 1,000 ML IV ONE (10:00)
[2019-06-10] MEDS ORDERED: IPRATROPIUM/ALBUTEROL SULFATE 3 ML AMPUL.NEB (DUONEB) INH ONE (10:00)
[2019-06-10] MEDS ORDERED: methylPREDNISolone SOD SUCC/PF 62.5 MG/ML VIAL IVP ONE (10:00)
[2019-06-10 10:18] LABS: ANION GAP 0 (5-15); CALCIUM 9.2 mg/dL (8.4-11.0); CHLORIDE 101 mmol/L (98-107); CREATININE 0.42 mg/dL (0.55-1.30); GLUCOSE 123 mg/dL (70-99); POTASSIUM 3.6 mmol/L (3.5-5.1); SODIUM SERUM 147 mmol/L (136-145); UREA NITROGEN, BLOOD 33 mg/dL (8-21)
[2019-06-10 10:24] LABS: ALANINE AMINOTRANSFERASE 38 U/L (12-78); ALBUMIN 3.1 g/dL (3.4-4.8); ASPARTATE AMINOTRANSFERASE 26 U/L (10-37); TOTAL BILIRUBIN 0.4 mg/dL (0.0-1.0)
[2019-06-10 10:26] LABS: PROTHROMBIN TIME 9.6 SECS (9.5-12.5)
--- NOTE | 2019-06-10 10:59 | NUR ---
Copy of POLST on chart from [facility].
--- NOTE | 2019-06-10 11:20 | NUR ---
# 16 FR In and Out catheter with use of sterile technique. Immediate return of 30 ml yellow urine noted. Urine sample collected and sent to lab. Pt tolerated procedure well. Patient unable to toilet self.
[2019-06-10] MEDS ORDERED: ACET325T53 GT (11:30)
[2019-06-10] MEDS ORDERED: ASCO500T20 GT (11:30)
[2019-06-10] MEDS ORDERED: LEVA1.2527 INH (11:30)
[2019-06-10] MEDS ORDERED: cefTRIAXone 1 GM in D5W 50 ML IV ONE (11:30)
[2019-06-10] MEDS ORDERED: METO25TA6 GT (11:30)
[2019-06-10] MEDS ORDERED: VITD2000 GT (11:30)
[2019-06-10] MEDS ORDERED: DOCU-144 PO (11:30)
[2019-06-10] MEDS ORDERED: ZINC220T4 GT (11:30)
[2019-06-10] MEDS ORDERED: PRED15SO48 GT (11:30)
--- NOTE | 2019-06-10 11:30 | NUR ---
Medication reconciliation completed with information provided by TIARA NGUYEN . Any prior medication reconciliation on file was reviewed and corrected.
[2019-06-10 11:49] LABS: BILIRUBIN,URINE NEGATIVE (NEGATIVE); BLOOD, URINE 1+ (NEGATIVE); CLARITY/URINE CLEAR (CLEAR); COLOR,URINE YELLOW (YELLOW); GLUCOSE,URINE NEGATIVE (NEGATIVE); KETONES,URINE NEGATIVE (NEGATIVE); LEUKOCYTE ESTERASE ,URINE NEGATIVE (NEGATIVE); NITRITE, URINE NEGATIVE (NEGATIVE); PROTEIN URINE NEGATIVE (NEGATIVE)
[2019-06-10 11:51] LABS: BASOPHILS % (AUTO) 0.1 % (0.0-2.0); HEMATOCRIT 35.7 % (36-48); HEMOGLOBIN 11.6 g/dL (12.0-16.0); LYMPHOCYTES # (AUTO) 0.2 K/uL (1.0-5.5); LYMPHOCYTES % (AUTO) 1.9 % (20.5-51.5); MEAN CORPUSCULAR HEMOGLOBIN 31 pg (27-31); MEAN CORPUSCULAR HGB CONC 33 % (32-36); MEAN CORPUSCULAR VOLUME 94 fL (79.0-98.0); MONOCYTES # (AUTO) 0.7 K/uL (0.0-1.0); MONOCYTES % (AUTO) 5.5 % (1.7-9.3); NEUTROPHILS # (AUTO) 11.9 K/uL (1.8-7.7); NEUTROPHILS % (AUTO) 92.5 % (40.0-70.0); PLATELET COUNT (AUTO) 280 K/uL (130-430); RED CELL DISTRIBUTION WIDTH 17.3 % (9.0-15.0); WHITE BLOOD COUNT (AUTO) 12.8 K/uL (4.8-10.8)
[2019-06-10] MEDS ORDERED: cefTRIAXone 1 GM VIAL ONE (11:55)
[2019-06-10 12:01] LABS: BACTERIA,URINE MODERATE /HPF (None Seen); MUCUS,URINE 1+ /LPF (None Seen); RBC,URINE 0-3 /HPF (0-3); WBC,URINE 0-3 /HPF (0-3)
--- NOTE | 2019-06-10 12:05 | NUR ---
Pt's daughter at bedside, pt resting at this time.
--- NOTE | 2019-06-10 12:31 | NUR ---
PER DR. GIANG,RESUME ENTERAL FEEDING. TIARA NGUYEN : JEVITY 1.5 AT 50CC PER HOUR FOR 20 HOURS VIA PUMP TO PROVIDE 1000CC/1500KCAL PER DAY.
--- NOTE | 2019-06-10 12:37 | NUR ---
TERRENCE ZARATE AT BEDSIDE, CHANGE IN CODE STATUS: FULL CODE STATUS
--- NOTE | 2019-06-10 13:08 | NUR ---
Patient will be admitted to care of Dr. Lara. Admitted to Tele unit. Will go to room 133A. Complete and up to date summary report printed. SBAR report to be given at bedside with opportunity for questions. Transfer to tele via ACLS protocol. Licensed nurse present. IV present no signs or symptoms of infiltration.
[2019-06-10 13:42] VITALS: BP_SYST 124
[2019-06-10 14:00] VITALS: BP_SYST 124
[2019-06-10] MEDS ORDERED: ASCORBIC ACID 500 MG TABLET GT ONE (14:00)
[2019-06-10] MEDS ORDERED: LevALBUTEROL HCL 1.25 MG/0.5 ML *CONC.* VIAL.NEB (XOPENEX CONC.) INH PRN (14:00)
[2019-06-10] MEDS ORDERED: ACETAMINOPHEN 325 MG TABLET GT PRN (14:00)
--- NOTE | 2019-06-10 14:00 | NUR ---
ADMISSION NOTE RECEIVED PT VIA EARL, ACCOMPANIED BY POSTAL INSPECTOR. DAUGHTER AT BEDSIDE. NO ACUTE DISTRESS NOTED, PT ON VENTURI MASK AT 9L.
[2019-06-10 14:34] VITALS: BP_SYST 124
--- NOTE | 2019-06-10 14:45 | NUR ---
DR. RAHAT MARINELLI AT BEDSIDE EXAMINING PT. MD TO CONTINUE MEDICATIONS, IVF AND TUBE FEEDING, MD WANTS PT ON OXIMIZER. VERIFIED WITH READ BACK.
[2019-06-10] MEDS: KCL 20 mEq in D5/0.45NS 1000mL 1,000 ML IV SCH (15:36)
[2019-06-10] MEDS: methylPREDNISolone SOD SUCC/PF 62.5 MG/ML VIAL IVP SCH ×2 (15:36→21:22)
--- NOTE | 2019-06-10 16:00 | NUR ---
RN ROUNDS PT ON OXIMIZER MASK AT 4L, SATURATING AT 100%. IVF INFUSING WELL. TUBE FEEDING INFUSING WELL. REPOSITIONED PT FOR COMFORT. WILL CONTINUE TO MONITOR.
[2019-06-10 16:16] VITALS: BP_SYST 139
[2019-06-10] MEDS: PIPERACILLIN/TAZO 3.375/DEX-IS 50 ML IV SCH (17:42)
--- NOTE | 2019-06-10 18:56 | NUR ---
CLOSING NOTE PT RESTING QUIETLY, BREATHING EVEN AND UNLABORED. PT ON OXIMIZER 4L, SATURATING AT 100%. IVF INFUSING WELL. TUBE FEEDING INFUSING WELL. CALL LIGHT WITHIN REACH, BED IN LOW AND LOCKED POSITION WITH BED ALARM ON. ALL NEEDS MET THROUGHOUT SHIFT. WILL CONTINUE TO MONITOR. UNTIL PT CARE IS ENDORSED TO SMUDGER RN.
--- NOTE | 2019-06-10 19:25 | NUR ---
Opening Note Received patient resting in bed, w/eyes closed. Nonlabored breathing on 4L oxymizer. Patient has G-tube feeding infusing at 50 ml/hr. IV is infusing via IV to LAC. Seizure pads on top rails, bed is locked in lowest position, side rails up 3x and bed alarm on. Updated board.
[2019-06-10] MEDS: LevALBUTEROL HCL 1.25 MG/0.5 ML *CONC.* VIAL.NEB (XOPENEX CONC.) INH SCH (20:11)
[2019-06-10] MEDS ORDERED: ZIPRASIDONE HCL 20 MG CAPSULE (GEODON) PO SCH (21:00)
[2019-06-10] MEDS: VALPROIC ACID 250 MG CAPSULE (DEPAKENE) PO SCH (21:21)
[2019-06-10] MEDS: METOPROLOL TARTRATE 25 MG TABLET GT SCH (21:22)
--- NOTE | 2019-06-10 21:33 | NUR ---
Medications Due medications given via G-tube. Patient had no residual noted. Tolerating G-tube feeding.
[2019-06-10 22:00] VITALS: BP_SYST 146
--- NOTE | 2019-06-10 22:15 | NUR ---
Transfer to new room Patient was moved to room 121C. She was wheeled in bed and belongings were also transferred.
[2019-06-11] MEDS: PIPERACILLIN/TAZO 3.375/DEX-IS 50 ML IV SCH ×5 (00:07→23:19)
--- NOTE | 2019-06-11 00:09 | NUR ---
Patient care, Antibiotic Due antibiotic, Zosyn, administered and infusing well. Patient was provided with zenaida-care and provided with clean pad/linen. She was repositioned/turned. Safety precautions in place.
--- NOTE | 2019-06-11 00:40 | NUR ---
Free Water G-tube residual was assessed and measured 5ml, which was returned. Patient was provided with 150 ml free water.
[2019-06-11 01:50] VITALS: BP_SYST 147
[2019-06-11] MEDS: LevALBUTEROL HCL 1.25 MG/0.5 ML *CONC.* VIAL.NEB (XOPENEX CONC.) INH SCH ×4 (02:23→19:44)
--- NOTE | 2019-06-11 02:28 | NUR ---
Breathing tx Patient was repositioned and turned. Patient tolerating feeding; no residual. RT providing breathing treatment. Addendum: 06/11/19 at 0448 by Brook Callahan RN Patient incontinent, voided, provided per-care.
--- NOTE | 2019-06-11 04:20 | NUR ---
Patient care Vital signs taken and stable, she was repositioned, no s/sx of distress. IVF infusing well and G-tube running as ordered.
[2019-06-11 04:26] VITALS: BP_SYST 115
--- NOTE | 2019-06-11 05:20 | NUR ---
Lab draw Passenger Screener at bedside for blood draw.
--- NOTE | 2019-06-11 05:30 | NUR ---
[place] Lizet incoming call BRYNN Hughes from [facility] called to inquire on admitting diagnosis and I informed PNA and COPD exacerbation. I asked her if she had her flu status information and she informed patient is current, according to records it was given on 02-09-19.
[2019-06-11] MEDS: methylPREDNISolone SOD SUCC/PF 62.5 MG/ML VIAL IVP SCH ×3 (05:52→21:44)
[2019-06-11 06:42] LABS: BASOPHILS % (AUTO) 0.1 % (0.0-2.0); HEMATOCRIT 31.2 % (36-48); HEMOGLOBIN 10.1 g/dL (12.0-16.0); LYMPHOCYTES # (AUTO) 0.1 K/uL (1.0-5.5); LYMPHOCYTES % (AUTO) 1.4 % (20.5-51.5); MEAN CORPUSCULAR HEMOGLOBIN 31 pg (27-31); MEAN CORPUSCULAR HGB CONC 32 % (32-36); MEAN CORPUSCULAR VOLUME 94 fL (79.0-98.0); MONOCYTES # (AUTO) 0.1 K/uL (0.0-1.0); MONOCYTES % (AUTO) 2.6 % (1.7-9.3); NEUTROPHILS # (AUTO) 5.1 K/uL (1.8-7.7); NEUTROPHILS % (AUTO) 95.9 % (40.0-70.0); PLATELET COUNT (AUTO) 202 K/uL (130-430); RED BLOOD CELL COUNT(AUTO) 3.31 MIL/uL (4.2-6.2); RED CELL DISTRIBUTION WIDTH 17.1 % (9.0-15.0); WHITE BLOOD COUNT (AUTO) 5.3 K/uL (4.8-10.8)
--- NOTE | 2019-06-11 06:47 | NUR ---
Closing Note Patient is resting in bed, w/eyes closed. Nonlabored breathing on 3L oxymizer. Patient has G-tube feeding infusing at 50 ml/hr and tolerating. IV is infusing via IV to LAC. Seizure pads on top rails, bed is locked in lowest position, side rails up 3x and bed alarm on. Needs met throughout shift, will endorse care in incoming nurse.
[2019-06-11 07:00] LABS: CALCIUM 8.5 mg/dL (8.4-11.0); CHLORIDE 102 mmol/L (98-107); CREATININE 0.45 mg/dL (0.55-1.30); GLUCOSE 153 mg/dL (70-99); POTASSIUM 3.5 mmol/L (3.5-5.1); SODIUM SERUM 140 mmol/L (136-145); UREA NITROGEN, BLOOD 22 mg/dL (8-21)
[2019-06-11 07:13] LABS: ANION GAP < 3 (5-15)
--- NOTE | 2019-06-11 07:35 | NUR ---
received patient in bed awake x 1 but confused. lungs bilateral diminished at the bases. abdomen soft and non distended. has oxymizer on 3 liters of oxygen. both arms has ecchymosis. but skin breakdown noted. keep arms dry/intact. incontinent both bowel and urine. Dr Szymanski came earlier in the morning. but made one order of medication. no other plans yet. continue to monitor patients status.
[2019-06-11 08:12] VITALS: BP_SYST 144
[2019-06-11] MEDS: CHOLECALCIFEROL (VITAMIN D3) 2,000 UNIT TABLET PO SCH (08:50)
[2019-06-11] MEDS: DOCUSATE SODIUM 100 MG CAPSULE PO SCH (08:50)
[2019-06-11] MEDS: VALPROIC ACID 250 MG CAPSULE (DEPAKENE) PO SCH ×2 (08:51→21:44)
[2019-06-11] MEDS: ASCORBIC ACID 500 MG TABLET GT SCH (08:51)
[2019-06-11] MEDS: METOPROLOL TARTRATE 25 MG TABLET GT SCH ×2 (08:51→21:45)
--- NOTE | 2019-06-11 08:51 | NUR ---
medication given as scheduled.
[2019-06-11] MEDS: ENOXAPARIN SODIUM 40 MG/0.4 ML SYRINGE SUBCUT SCH (08:53)
--- NOTE | 2019-06-11 09:51 | NUR ---
Nutrition Update Dom Scale 13 noted. Pt admitted for pneumonia and COPD. Diet: Jevity 1.5 at 50 ml/hr x20 hours via GT BMI: 15.1 kg/m2 RD to follow per nutrition care standards.
--- NOTE | 2019-06-11 10:00 | NUR ---
turn to sides. made comfortable.
[2019-06-11] MEDS: KCL 20 mEq in D5/0.45NS 1000mL 1,000 ML IV SCH (11:18)
[2019-06-11 12:00] VITALS: BP_SYST 156
--- NOTE | 2019-06-11 12:30 | NUR ---
due antibiotic given. new feeding set up changed at this time.
--- NOTE | 2019-06-11 12:30 | NUR ---
daughter came to see the mom
--- NOTE | 2019-06-11 13:26 | NUR ---
Sena ward helper came and evaluate the patient.
--- NOTE | 2019-06-11 15:40 | NUR ---
Dietitian Recommendations * Recommend Jevity 1.5 at 50 ml/hr x20 hours, Galdino BID, Free Water Flush: 150 ml Q6h via GT Provides: 1660 kcal/day, 69 gm protein/day, and 1360 ml free water/day Meets: 119% of upper end of estimated caloric needs and 133% of lower end of estimated protein needs LP, RD Please refer to Nutrition Assessment for details. Addendum: 06/11/19 at [address] Amended: Links added.
[2019-06-11 16:00] VITALS: BP_SYST 132
--- NOTE | 2019-06-11 16:47 | NUR ---
REPOSITIONED TO SIDES. MADE COMFORTABLE. NO SOB NOR PAIN NOTED.
--- NOTE | 2019-06-11 18:35 | NUR ---
called respiratory therapist for breathing treatment. hamzah said yes, they are on report for now. will continue to monitor patients status. still on 3liter oxymizer. both arms eccymosis noted. still with iv fluids on and g tube of jevity 1.5 at 50cc/hr infusing on well. all needs are met. will continue to monitor patients status by nite nurse.
--- NOTE | 2019-06-11 19:50 | NUR ---
OPENING NOTES Received bedside report from BRYNN Peters. Patient is resting in bed, awake, breathing evenly and nonlabored on 3L of oxygen via Oxymizer. Patient has an IV the left AC, patent and benign, no s/s of infiltration or infection noted, IVF running, patient is tolerating it well. GT feeding running, patient is tolerating it well. Educated patient on plan of care, fall/safety/aspiration/seizure precautions, call light system, patient unable to state understanding due to cognitive limitations. Padded side rails, bed is locked, armed, and at lowest position. Will continue to monitor.
[2019-06-11 20:10] VITALS: BP_SYST 129
--- NOTE | 2019-06-11 21:11 | NUR ---
MD ORDERS GIVEN Spoke with Dr. Jane MD changed dose for medication ziprasidone (Geodon) from 4mg QHS to 20mg QHS.
--- NOTE | 2019-06-11 21:45 | NUR ---
MEDICATION/ROUNDS Patient is resting in bed, awake, breathing evenly and nonlabored on 3L of oxygen via Oxymizer. Vital signs stable. Educated patient on due medications, patient unable to state understanding due to cognitive limitations. Administered medications, patient tolerated it well. No s/s of distress at this time, no other needs at this time. Fall/safety/aspiration/seizure precautions. Will continue to monitor.
--- NOTE | 2019-06-11 23:43 | NUR ---
MEDICATION/ROUNDS Patient is resting in bed, eyes closed, breathing evenly and nonlabored on 3L of oxygen via Oxymizer. Educated patient on due medication, patient unable to state understanding due to cognitive limitations. Administered medication, patient tolerated it well. No s/s of distress at this time, no other needs at this time. Fall/safety/aspiration/seizure precautions. Will continue to monitor.
--- NOTE | 2019-06-12 | NUR ---
ROUNDS Patient is resting in bed, eyes closed, breathing evenly and nonlabored on 3L of oxygen via Oxymizer. GT feeding stopped per orders, will resume in 4 hours. No s/s of distress at this time, no other needs at this time. Fall/safety/aspiration/seizure precautions. Will continue to monitor.
[2019-06-12] MEDS: LevALBUTEROL HCL 1.25 MG/0.5 ML *CONC.* VIAL.NEB (XOPENEX CONC.) INH SCH ×4 (00:33→20:24)
[2019-06-12 00:37] VITALS: BP_SYST 145
--- NOTE | 2019-06-12 02:00 | NUR ---
ROUNDS Patient is resting in bed, eyes closed, breathing evenly and nonlabored on 3L of oxygen via Oxymizer. No s/s of distress at this time, no other needs at this time. Fall/safety/aspiration/seizure precautions. Will continue to monitor.
--- NOTE | 2019-06-12 04:05 | NUR ---
ROUNDS Patient is resting in bed, eyes closed, breathing evenly and nonlabored on 3L of oxygen via Oxymizer. No s/s of distress at this time, no other needs at this time. Fall/safety/aspiration/seizure precautions.
[2019-06-12] MEDS: KCL 20 mEq in D5/0.45NS 1000mL 1,000 ML IV SCH (05:20)
[2019-06-12] MEDS: PIPERACILLIN/TAZO 3.375/DEX-IS 50 ML IV SCH ×4 (05:20→21:22)
[2019-06-12] MEDS: methylPREDNISolone SOD SUCC/PF 62.5 MG/ML VIAL IVP SCH ×2 (05:20→13:56)
[2019-06-12 05:45] LABS: CALCIUM 8.5 mg/dL (8.4-11.0); CREATININE 0.35 mg/dL (0.55-1.30); GLUCOSE 100 mg/dL (70-99); POTASSIUM 3.1 mmol/L (3.5-5.1); UREA NITROGEN, BLOOD 15 mg/dL (8-21)
[2019-06-12 06:31] LABS: HEMATOCRIT 31.4 % (36-48); HEMOGLOBIN 10.3 g/dL (12.0-16.0); LYMPHOCYTES # (AUTO) 0.1 K/uL (1.0-5.5); LYMPHOCYTES % (AUTO) 1.9 % (20.5-51.5); MEAN CORPUSCULAR HEMOGLOBIN 30 pg (27-31); MEAN CORPUSCULAR HGB CONC 33 % (32-36); MEAN CORPUSCULAR VOLUME 93 fL (79.0-98.0); MONOCYTES # (AUTO) 0.2 K/uL (0.0-1.0); MONOCYTES % (AUTO) 3.9 % (1.7-9.3); NEUTROPHILS % (AUTO) 94.2 % (40.0-70.0); PLATELET COUNT (AUTO) 204 K/uL (130-430); RED BLOOD CELL COUNT(AUTO) 3.39 MIL/uL (4.2-6.2); RED CELL DISTRIBUTION WIDTH 16.8 % (9.0-15.0); WHITE BLOOD COUNT (AUTO) 4.2 K/uL (4.8-10.8)
--- NOTE | 2019-06-12 06:31 | NUR ---
CLOSING NOTES Patient is resting in bed, eyes closed, breathing evenly and nonlabored on 3L of oxygen via Oxymizer. Educated patient on due medications, patient unable to state understanding due to cognitive limitations. Administered medications, patient tolerated it well. No s/s of distress at this time, no other needs at this time. Needs met throughout the shift. Fall/safety/aspiration/seizure precautions, will endorse care to morning shift RN.
[2019-06-12 06:32] LABS: CHLORIDE 97 mmol/L (98-107); SODIUM SERUM 135 mmol/L (136-145)
[2019-06-12 06:43] LABS: ANION GAP < 3 (5-15)
--- NOTE | 2019-06-12 07:15 | NUR ---
OPENING NOTES PT AWAKE AND CONFUSED. RE-ORIENTED PT TO PERSON, PLACE, AND TIME. PATIENT CLEAN AND DRY. IV LINE INTACT AND PATENT, NO SIGNS OF INFILTRATION NOTED, FLUIDS RUNNING ORDERED PER MD, TOLERATING WELL. G-TUBE INTACT AND PATENT, NO RESIDUAL NOTED, CORRECT PLACEMENT NOTED, FEEDING RUNNING ORDERED PER MD, TOLERATING WELL. NONLABORED BREATHING NOTED, RECEIVING OXYGEN VIA OXYMIZER AT 3L, TOLERATING WELL. BED IN LOCKED AND LOWEST POSITION. BED ALARM ON, ALL NEED MET. CALL LIGHT IN REACH. FALL AND ASPIRATION AND SEIZURE PRECAUTIONS IN PLACE. CONTINUE TO MONITOR.
[2019-06-12 08:03] VITALS: BP_SYST 104; BP_SYST 110
[2019-06-12] MEDS: CHOLECALCIFEROL (VITAMIN D3) 2,000 UNIT TABLET PO SCH (08:58)
[2019-06-12] MEDS: DOCUSATE SODIUM 100 MG CAPSULE PO SCH (08:59)
[2019-06-12] MEDS: VALPROIC ACID 250 MG CAPSULE (DEPAKENE) PO SCH ×2 (08:59→21:21)
[2019-06-12] MEDS: ASCORBIC ACID 500 MG TABLET GT SCH (08:59)
[2019-06-12] MEDS: METOPROLOL TARTRATE 25 MG TABLET GT SCH ×2 (09:00→21:22)
--- NOTE | 2019-06-12 09:00 | NUR ---
ROUTINE MEDS ROUTINE MEDS ADMINISTERED ORDERED PER MD, EDUCATION GIVEN, TOLERATED WELL. HOB ELEVATED. NO ACUTE DISTRESS NOTED. ALL NEEDS MET. CALL LIGHT IN REACH. CONTINUE TO MONITOR.
[2019-06-12] MEDS: ENOXAPARIN SODIUM 40 MG/0.4 ML SYRINGE SUBCUT SCH (09:07)
--- NOTE | 2019-06-12 10:58 | NUR ---
ROUNDS PT RESTING IN BED. CHEST RISE AND FALL NOTED. HOB ELEVATED. NONLABORED BREATHING NOTED WITH OXYMIZER AT 3L. NO ACUTE DISTRESS NOTED. ALL NEEDS MET. CALL LIGHT IN REACH. CONTINUE TO MONITOR.
--- NOTE | 2019-06-12 11:24 | NUR ---
ROUTINE MEDS ROUTINE MEDS ADMINISTERED ORDERED PER MD, EDUCATION GIVEN, TOLERATED WELL. NO ACUTE DISTRESS NOTED. ALL NEEDS MET. CALL LIGHT IN REACH. CONTINUE TO MONITOR.
[2019-06-12 11:45] VITALS: BP_SYST 131
[2019-06-12 12:00] VITALS: BP_SYST 119; BP_SYST 120
--- NOTE | 2019-06-12 13:55 | NUR ---
PATIENT RECEIVING BREATHING TREATMENT FROM RT, EDUCATION GIVEN, TOLERATED WELL. ALL NEEDS MET. CALL LIGHT IN REACH. CONTINUE TO MONITOR.
--- NOTE | 2019-06-12 13:56 | NUR ---
ROUTINE MEDS ROUTINE MEDS ADMINISTERED ORDERED PER MD, EDUCATION GIVEN, TOLERATED WELL. ALL NEEDS MET. CALL LIGHT IN REACH. CONTINUE TO MONITOR.
--- NOTE | 2019-06-12 14:29 | NUR ---
Discharge Planning: DCP faxed referral to [facility] (f [phone] p [phone]) DCP to follow up. Addendum: 06/12/19 at 1634 by Yvrose GLASER DCP followed up spoke to Cadence at [place] (f [phone] p [phone]) fax was received it was given to Amado but he is in a meeting.
--- NOTE | 2019-06-12 15:45 | NUR ---
ROUNDS PT RESTING IN BED. CHEST RISE AND FALL NOTED. NONLABORED BREATHING, RECEIVING OXYGEN VIA OXYMIZER AT 3LPM, TOLERATING WELL. NO ACUTE DISTRESS NOTED. ALL NEEDS MET, CALL LIGHT IN REACH. HOB ELEVATED. CONTINUE TO MONITOR.
[2019-06-12 16:29] VITALS: BP_SYST 108
--- NOTE | 2019-06-12 16:45 | NUR ---
SEEN BY DR. GIANG AT BEDSIDE.
[2019-06-12] MEDS ORDERED: POTASSIUM CHLORIDE 20 MEQ/PKT PACKET GT ONE (17:00)
--- NOTE | 2019-06-12 17:32 | NUR ---
ROUTINE MEDS ROUTINE MEDS ADMINISTERED ORDERED PER MD, EDUCATION GIVEN, TOLERATED WELL. NO ACUTE DISTRESS NOTED. CALL LIGHT IN REACH. CONTINUE TO MONITOR.
--- NOTE | 2019-06-12 18:45 | NUR ---
CLOSING NOTES PT RESTING IN BED. CHEST RISE AND FALL NOTED. PATIENT CLEAN AND DRY. G-TUBE INTACT AND PATENT, NO RESIDUAL NOTED, CORRECT PLACEMENT NOTED, FEEDING RUNNING ORDERED PER MD, TOLERATING WELL. IV LINE INTACT AND PATENT, NO SIGNS OF INFILTRATION NOTED, FLUIDS RUNNING ORDERED PER MD, TOLERATING WELL. NONLABORED BREATHING NOTED, RECEIVING OXYGEN VIA OXYMIZER AT 3LPM, TOLERATING WELL. BED IN LOCKED AND LOWEST POSITION. BED ALARM ON. ALL NEEDS MET. CALL LIGHT IN REACH. FALL AND ASPIRATION AND SEIZURE PRECAUTIONS IN PLACE. WILL ENDORSE TO NOC NURSE.
[2019-06-12 20:00] VITALS: BP_SYST 110
--- NOTE | 2019-06-12 20:00 | NUR ---
received pt in bed cleaned repositioned made comfortable ,v/s and assessment done same stable ,ib fluids in placr infusing well gt in place with jevity infusing well
[2019-06-12] MEDS: ZIPRASIDONE HCL 20 MG CAPSULE (GEODON) PO SCH (21:00)
[2019-06-12] MEDS: methylPREDNISolone SOD SUCC 40 MG/ML VIAL IVP SCH (21:21)
[2019-06-13] VITALS (7 sets, daily range): BP systolic 110–155
--- NOTE | 2019-06-13 | NUR ---
gtube in place jevity 1.5 stopped as ordered water flushes given
[2019-06-13] MEDS: KCL 20 mEq in D5/0.45NS 1000mL 1,000 ML IV SCH ×2 (02:15→22:47)
[2019-06-13] MEDS: LevALBUTEROL HCL 1.25 MG/0.5 ML *CONC.* VIAL.NEB (XOPENEX CONC.) INH SCH ×4 (02:22→23:01)
--- NOTE | 2019-06-13 04:00 | NUR ---
am care given repositioned made comfortable nio distress noted at this time
[2019-06-13] MEDS: PIPERACILLIN/TAZO 3.375/DEX-IS 50 ML IV SCH ×3 (06:01→17:40)
--- NOTE | 2019-06-13 08:20 | NUR ---
RECEIVED PATIENT ALERT AWAKE X 1 CONFUSED, BUT ANSWERS HER NAME ONLY. HAS BILATERAL ECCHYMOSIS BOTH ARMS. SKIN INTACT. NO BREAKDOWN NOTED. NO DRAINAGE NO ODOR NOTED. HAS IV ACCESS ON THE LEFT AC #20.WITH IVF D5 1/2 NS +20KCL AT 75CC/HR INFUSING ON WELL. TOTAL CARE. ON SEIZURE PRECAUTION. WILL CONTINUE TO MONITOR PATIENTS STATUS.
--- NOTE | 2019-06-13 08:30 | NUR ---
PATIENT HAS G TUBE FEEDING OF JEVITY 1.5 AT 50CC/HR INFUSING ON WELL.
[2019-06-13] MEDS: VALPROIC ACID 250 MG CAPSULE (DEPAKENE) PO SCH ×2 (09:53→22:48)
[2019-06-13] MEDS: methylPREDNISolone SOD SUCC 40 MG/ML VIAL IVP SCH ×2 (09:53→22:48)
[2019-06-13] MEDS: ASCORBIC ACID 500 MG TABLET GT SCH (09:53)
[2019-06-13] MEDS: DOCUSATE SODIUM 100 MG CAPSULE PO SCH (09:54)
[2019-06-13] MEDS: CHOLECALCIFEROL (VITAMIN D3) 2,000 UNIT TABLET PO SCH (09:54)
[2019-06-13] MEDS: METOPROLOL TARTRATE 25 MG TABLET GT SCH ×2 (09:56→22:54)
[2019-06-13] MEDS: ENOXAPARIN SODIUM 40 MG/0.4 ML SYRINGE SUBCUT SCH (09:57)
--- NOTE | 2019-06-13 10:30 | NUR ---
MEDICATION DUE GIVEN.
--- NOTE | 2019-06-13 12:00 | NUR ---
TURN TO SIDES. MADE COMFORTABLE.
--- NOTE | 2019-06-13 14:00 | NUR ---
REPOSITIONED TO SIDES. HOB ELEVATED. MADE COMFORTABLE.
--- NOTE | 2019-06-13 16:08 | NUR ---
RESTING AT THIS TIME. BOTH EYES OPEN.
--- NOTE | 2019-06-13 16:49 | NUR ---
DRY SCAB ON THE SACRUM AREA. APPLY Z GUARD AND OPTIFOAM DRESSING. NO ODOR NOR DRAINAGE NOTED. SLIGHT REDNESS NOTED. MAINTAIN KEEP DRY/INTACT.
--- NOTE | 2019-06-13 18:00 | NUR ---
turn to sides.
--- NOTE | 2019-06-13 19:20 | NUR ---
endorsed to incoming nurse Mary SWAIN
--- NOTE | 2019-06-13 19:55 | NUR ---
OPENING NOTES Received bedside report from BRYNN Peters. Patient is resting in bed, eyes closed, breathing evenly and nonlabored on 3L of oxygen via Oxymizer. Patient has an IV the left AC, patent and benign, no s/s of infiltration or infection noted, IVF running, patient is tolerating it well. GT feeding running, patient is tolerating it well. Educated patient on plan of care, fall/safety/aspiration/seizure precautions, call light system, patient unable to state understanding due to cognitive limitations. Padded side rails, bed is locked, armed, and at lowest position. Will continue to monitor.
[2019-06-13] MEDS: ZIPRASIDONE HCL 20 MG CAPSULE (GEODON) PO SCH (22:47)
--- NOTE | 2019-06-13 22:48 | NUR ---
MEDICATION/ROUNDS Patient is resting in bed, awake, breathing evenly and nonlabored on 3L of oxygen via Oxymizer. Vital signs stable. Educated patient on due medications. Patient unable to state understanding due to cognitive limitations. Administered medications, patient tolerated it well. No s/s of distress at this time, no other needs at this time. Fall/safety/aspiration/seizure precautions. Will continue to monitor.
[2019-06-14] VITALS (8 sets, daily range): BP systolic 101–151
--- NOTE | 2019-06-14 | NUR ---
ROUNDS Patient is resting in bed, eyes closed, breathing evenly and nonlabored on 3L of oxygen via Oxymizer. Stopped gt feeding per orders. No s/s of distress at this time, no other needs at this time. Fall/safety/aspiration/seizure precautions. Will continue to monitor.
[2019-06-14] MEDS: PIPERACILLIN/TAZO 3.375/DEX-IS 50 ML IV SCH ×5 (00:46→23:04)
[2019-06-14] MEDS: LevALBUTEROL HCL 1.25 MG/0.5 ML *CONC.* VIAL.NEB (XOPENEX CONC.) INH SCH ×4 (00:51→19:04)
--- NOTE | 2019-06-14 04:00 | NUR ---
ROUNDS Patient is resting in bed, eyes closed, breathing evenly and nonlabored on 3L of oxygen via Oxymizer. GT feeding resumed, patient is tolerating it well. No s/s of distress at this time, no other needs at this time. Fall/safety/aspiration/seizure precautions.
--- NOTE | 2019-06-14 07:15 | NUR ---
OPENING NOTES PT AWAKE AND ALERT. PT CLEAN AND DRY. G-TUBE INTACT AND PATENT, CHECKED PLACEMENT, NO RESIDUAL NOTED. G-TUBE FEEDING RUNNING ORDERED PER MD, TOLERATING WELL. IV LINE INTACT AND PATENT, NO SIGNS OF INFILTRATION NOTED, FLUIDS RUNNING ORDERED PER MD, TOLERATING WELL. NONLABORED BREATHING NOTED, RECEIVING OXYGEN VIA OXYMIZER AT 3L, TOLERATING WELL. BED LOCKED AND IN LOWEST POSITION. BED ALARM ON. ALL NEEDS MET. CALL LIGHT IN REACH. FALL. ASPIRATION, AND SEIZURE PRECAUTIONS IN PLACE. CONTINUE TO MONITOR.
--- NOTE | 2019-06-14 08:00 | NUR ---
ROUNDS PT AWAKE AND ALERT. NONLABORED BREATHING NOTED, RECEIVING OXYGEN ORDERED PER MD VIA OXYMIZER. NO ACUTE DISTRESS NOTED. ALL NEEDS MET. CALL LIGHT IN REACH. CONTINUE TO MONITOR.
[2019-06-14] MEDS: METOPROLOL TARTRATE 25 MG TABLET GT SCH ×2 (09:00→21:10)
[2019-06-14] MEDS: DOCUSATE SODIUM 100 MG CAPSULE PO SCH (09:55)
[2019-06-14] MEDS: VALPROIC ACID 250 MG CAPSULE (DEPAKENE) PO SCH ×2 (09:55→21:08)
[2019-06-14] MEDS: CHOLECALCIFEROL (VITAMIN D3) 2,000 UNIT TABLET PO SCH (09:56)
[2019-06-14] MEDS: methylPREDNISolone SOD SUCC 40 MG/ML VIAL IVP SCH ×2 (09:56→21:08)
[2019-06-14] MEDS: ASCORBIC ACID 500 MG TABLET GT SCH (09:56)
--- NOTE | 2019-06-14 09:56 | NUR ---
ROUTINE MEDS ROUTINE MEDS ADMINISTERED ORDERED PER MD, EDUCATION GIVEN, TOLERATED WELL. NO ACUTE DISTRESS NOTED. HOB ELEVATED. ALL NEEDS MET. CALL LIGHT IN REACH. CONTINUE TO MONITOR.
[2019-06-14 10:11] LABS: ANION GAP 3 (5-15); CALCIUM 8.9 mg/dL (8.4-11.0); CHLORIDE 95 mmol/L (98-107); CREATININE 0.44 mg/dL (0.55-1.30); GLUCOSE 140 mg/dL (70-99); POTASSIUM 3.3 mmol/L (3.5-5.1); SODIUM SERUM 135 mmol/L (136-145); UREA NITROGEN, BLOOD 21 mg/dL (8-21)
[2019-06-14] MEDS: ENOXAPARIN SODIUM 40 MG/0.4 ML SYRINGE SUBCUT SCH (10:19)
[2019-06-14 10:22] LABS: BASOPHILS % (AUTO) 0.1 % (0.0-2.0); HEMOGLOBIN 11.9 g/dL (12.0-16.0); LYMPHOCYTES # (AUTO) 0.2 K/uL (1.0-5.5); LYMPHOCYTES % (AUTO) 3.2 % (20.5-51.5); MEAN CORPUSCULAR HEMOGLOBIN 30 pg (27-31); MEAN CORPUSCULAR HGB CONC 33 % (32-36); MEAN CORPUSCULAR VOLUME 92 fL (79.0-98.0); MONOCYTES # (AUTO) 0.7 K/uL (0.0-1.0); MONOCYTES % (AUTO) 9.2 % (1.7-9.3); NEUTROPHILS # (AUTO) 6.2 K/uL (1.8-7.7); NEUTROPHILS % (AUTO) 87.5 % (40.0-70.0); PLATELET COUNT (AUTO) 226 K/uL (130-430); RED BLOOD CELL COUNT(AUTO) 3.92 MIL/uL (4.2-6.2); RED CELL DISTRIBUTION WIDTH 16.9 % (9.0-15.0); WHITE BLOOD COUNT (AUTO) 7.1 K/uL (4.8-10.8)
--- NOTE | 2019-06-14 11:19 | NUR ---
ROUTINE MEDS ROUTINE MEDS ADMINISTERED ORDERED PER MD, EDUCATION GIVEN, TOLERATED WELL. NO ACUTE DISTRESS NOTED. ALL NEEDS MET. CALL LIGHT IN REACH. CONTINUE TO MONITOR.
--- NOTE | 2019-06-14 13:00 | NUR ---
ROUNDS PT RESTING IN BED. CHEST RISE AND FALL NOTED. NONLABORED BREATHING NOTED, RECEIVING OXYGEN ORDERED PER MD, TOLERATING WELL. HOB ELEVATED. PT CLEAN AND DRY. NO ACUTE DISTRESS NOTED. ALL NEEDS MET. CALL LIGHT IN REACH. CONTINUE TO MONITOR.
--- NOTE | 2019-06-14 15:00 | NUR ---
ROUNDS PT RESTING IN BED. CHEST RISE AND FALL NOTED, NO ACUTE DISTRESS NOTED. ALL NEEDS MET. CALL LIGHT IN REACH. CONTINUE TO MONITOR.
--- NOTE | 2019-06-14 16:30 | NUR ---
SPOKE TO FAMILY AT BEDSIDE. UPDATED ON CARE PLAN, ALL NEEDS MET. CALL LIGHT IN REACH. CONTINUE TO MONITOR.
--- NOTE | 2019-06-14 16:36 | NUR ---
PT RECEIVING BREATHING TREATMENT ORDERED PRN, TOLERATING WELL. NO ACUTE DISTRESS NOTED. FAMILY AT BEDSIDE. ALL NEEDS MET. CALL LIGHT IN REACH. CONTINUE TO MONITOR. Addendum: 06/14/19 at 1812 by Aspen Bell RN WRONG PATIENT
[2019-06-14] MEDS: KCL 20 mEq in D5/0.45NS 1000mL 1,000 ML IV SCH (17:19)
--- NOTE | 2019-06-14 18:10 | NUR ---
SPOKE TO DR. ORTIZ REGARDING LAB VALUES. RECEIVED ORDERS TO ADMINISTER POTASSIUM, VERIFIED AND CARRIED OUT.
[2019-06-14] MEDS ORDERED: POTASSIUM CHLORIDE 20 MEQ/PKT PACKET PO SCH ×2 (18:12→18:37)
--- NOTE | 2019-06-14 18:45 | NUR ---
CLOSING NOTES PT AWAKE AND ALERT, WATCHING TV. HOB ELEVATED. G-TUBE INTACT AND PATENT. G-TUBE FEEDING RUNNING ORDERED PER MD, TOLERATING WELL. PT CLEAN AND DRY. IV LINE INTACT AND PATENT, NO SIGNS OF INFILTRATION NOTED, FLUIDS RUNNING ORDERED PER MD, TOLERATING WELL. NONLABORED BREATHING NOTED, RECEIVING OXYGEN VIA OXYMIZER ORDERED PER MD, TOLERATING WELL. BED LOCKED AND IN LOWEST POSITION. BED ALARM ON. ALL NEEDS MET. CALL LIGHT IN REACH. FALL. ASPIRATION, AND SEIZURE PRECAUTIONS IN PLACE. WILL ENDORSE TO NOC NURSE.
--- NOTE | 2019-06-14 19:30 | NUR ---
OPENING NOTES Received bedside report from BRYNN Louise. Patient is resting in bed, eyes closed, breathing evenly and nonlabored on 3L of oxygen via Oxymizer. Patient has an IV the left AC, infiltrated, will attempt to restart IV. GT feeding running, patient is tolerating it well. Educated patient on plan of care, fall/safety/aspiration/seizure precautions, call light system, patient unable to state understanding due to cognitive limitations. Padded side rails, bed is locked, armed, and at lowest position. Will continue to monitor.
--- NOTE | 2019-06-14 20:00 | NUR ---
ROUNDS Patient is resting in bed, awake, breathing evenly and nonlabored on 3L of oxygen via Oxymizer. Restarted IV on the left forearm 22g, patent and benign, IVF continued and running, patient is tolerating it well. No s/s of distress at this time, no other needs at this time. Fall/safety/aspiration/seizure precautions. Will continue to monitor.
[2019-06-14] MEDS: ZIPRASIDONE HCL 20 MG CAPSULE (GEODON) PO SCH (21:09)
--- NOTE | 2019-06-14 21:10 | NUR ---
MEDICATION/ROUNDS Patient is resting in bed, awake, breathing evenly and nonlabored on 3L of oxygen via Oxymizer. Educated patient on due medications. Patient unable to state understanding due to cognitive limitations. Administered medications, patient tolerated it well. No s/s of distress at this time, no other needs at this time. Fall/safety/aspiration/seizure precautions. Will continue to monitor.
--- NOTE | 2019-06-14 23:10 | NUR ---
MEDICATION/ROUNDS Patient is resting in bed, eyes closed, breathing evenly and nonlabored on 3L of oxygen via Oxymizer. Educated patient on due medication, patient unable to state understanding due to cognitive limitations. Administered medication, patient tolerated it well. No s/s of distress at this time, no other needs at this time. Fall/safety/aspiration/seizure precautions, will continue to monitor.
--- NOTE | 2019-06-15 | NUR ---
ROUNDS Patient is resting in bed, eyes closed, breathing evenly and nonlabored on 3L of oxygen via Oxymizer. Stopped gt feeding per orders. No s/s of distress at this time, no other needs at this time. Fall/safety/aspiration/seizure precautions, will continue to monitor.
[2019-06-15] MEDS: LevALBUTEROL HCL 1.25 MG/0.5 ML *CONC.* VIAL.NEB (XOPENEX CONC.) INH SCH ×4 (00:40→19:50)
--- NOTE | 2019-06-15 04:00 | NUR ---
ROUNDS Patient is resting in bed, eyes closed, breathing evenly and nonlabored on 3L of oxygen via Oxymizer. GT feeding resumed, patient is tolerating it well. Hygiene care performed, linens changed. No s/s of distress at this time, no other needs at this time. Fall/safety/aspiration/seizure precautions.
[2019-06-15] MEDS: PIPERACILLIN/TAZO 3.375/DEX-IS 50 ML IV SCH ×4 (05:20→23:30)
[2019-06-15 06:31] LABS: HEMATOCRIT 39.2 % (36-48); HEMOGLOBIN 12.9 g/dL (12.0-16.0); LYMPHOCYTES # (AUTO) 0.2 K/uL (1.0-5.5); LYMPHOCYTES % (AUTO) 3.2 % (20.5-51.5); MEAN CORPUSCULAR HEMOGLOBIN 30 pg (27-31); MEAN CORPUSCULAR HGB CONC 33 % (32-36); MEAN CORPUSCULAR VOLUME 92 fL (79.0-98.0); MONOCYTES # (AUTO) 0.2 K/uL (0.0-1.0); MONOCYTES % (AUTO) 4.2 % (1.7-9.3); NEUTROPHILS # (AUTO) 4.8 K/uL (1.8-7.7); NEUTROPHILS % (AUTO) 92.6 % (40.0-70.0); PLATELET COUNT (AUTO) 223 K/uL (130-430); RED BLOOD CELL COUNT(AUTO) 4.24 MIL/uL (4.2-6.2); WHITE BLOOD COUNT (AUTO) 5.2 K/uL (4.8-10.8)
[2019-06-15 06:33] LABS: ALANINE AMINOTRANSFERASE 74 U/L (12-78); ANION GAP 5 (5-15); ASPARTATE AMINOTRANSFERASE 36 U/L (10-37); CALCIUM 8.6 mg/dL (8.4-11.0); CHLORIDE 98 mmol/L (98-107); CREATININE 0.34 mg/dL (0.55-1.30); GLUCOSE 114 mg/dL (70-99); POTASSIUM 3.5 mmol/L (3.5-5.1); SODIUM SERUM 140 mmol/L (136-145); TOTAL BILIRUBIN 0.6 mg/dL (0.0-1.0); UREA NITROGEN, BLOOD 14 mg/dL (8-21)
--- NOTE | 2019-06-15 06:47 | NUR ---
CLOSING NOTES Patient is resting in bed, eyes closed, breathing evenly and nonlabored on 3L of oxygen via Oxymizer. Needs met throughout the shift. No s/s of distress at this time, no other needs at this time. Fall/safety/aspiration/seizure precautions, will endorse care to morning shift RN.
--- NOTE | 2019-06-15 08:00 | NUR ---
initial notes rec patient awake with hob elevated. ivf infusing well on the l forearm. no infiltration noted.resp easy and unlabored. no sob noted. with o2 at 3 liters via oximyzer.noted with gen bruise all over his body.bed to the lowest positon and side rails up and locked.
[2019-06-15 08:33] VITALS: BP_SYST 149
[2019-06-15] MEDS: DOCUSATE SODIUM 100 MG CAPSULE PO SCH (09:00)
[2019-06-15] MEDS: CHOLECALCIFEROL (VITAMIN D3) 2,000 UNIT TABLET PO SCH (09:45)
[2019-06-15] MEDS: methylPREDNISolone SOD SUCC 40 MG/ML VIAL IVP SCH ×2 (09:45→22:00)
[2019-06-15] MEDS: VALPROIC ACID 250 MG CAPSULE (DEPAKENE) PO SCH ×2 (09:45→22:00)
[2019-06-15] MEDS: ASCORBIC ACID 500 MG TABLET GT SCH (09:45)
[2019-06-15] MEDS: METOPROLOL TARTRATE 25 MG TABLET GT SCH ×2 (09:46→22:08)
[2019-06-15] MEDS: ENOXAPARIN SODIUM 40 MG/0.4 ML SYRINGE SUBCUT SCH (09:55)
--- NOTE | 2019-06-15 10:30 | NUR ---
rounds due meds given through the gt and lonnie well. no residual noted. call light within reached . turned repositioned for comfort.
[2019-06-15 12:00] VITALS: BP_SYST 120
--- NOTE | 2019-06-15 14:00 | NUR ---
Nutrition F/U RD reviewed pt's current EMR including diet Hx, physician notes, nursing notes, pertinent labs/meds/procedures, care trends and care activity. Current Nutrition Support: Jevity 1.5 at 50ml/hr, Galdino BID, FWF 150ml Q6H via GT Subjective information: Pt seen in bed, EN infusing per MD orders. Per RN report, pt is tolerating EN regimen well, no residual this morning. Galdino has not been administered yet, but will provide later today. RD noted labs trending down since last visit. EN regimen is appropriate and adequate. Estimated Energy Expenditure (kcals/day) 6726-6002 kcal/day (30-35 kcal/kg CBw for wt gain promotion) Estimated Protein Required (g/day) 52-80 gm/day (1.3-2 gm/kg CBW for COPD, wt gain promotion) Estimated Fluid Required (l/day) 1.2-1.4 L/day (1 ml/kcal/day for maintenance) Problem/Etiology/Signs/Symptoms Malnutrition related to physiological causes as evidenced by BMI: 15.1 kg/m2 and 73% of IBW. (*ongoing) Expected Outcomes/Goals - Monitor tolerance to EN support w/ goal of pt meeting 100% of estimated nutritional needs, labs trending WNL, normal GI function, and skin integrity/wt maintenance Dietitian Recommendations * Recommend continuing Jevity 1.5 at 50 ml/hr x20 hours, Galdino BID, Free Water Flush: 150 ml Q6h via GT Provides: 1660 kcal/day, 69 gm protein/day, and 1360 ml free water/day Meets: 119% of upper end of estimated caloric needs and 133% of lower end of estimated protein needs Follow Up High Risk: F/U in 2-3days TAMMY JAUREGUI
--- NOTE | 2019-06-15 14:04 | NUR ---
Dietitian Recommendations * Recommend continuing Jevity 1.5 at 50 ml/hr x20 hours, Galdino BID, Free Water Flush: 150 ml Q6h via GT Provides: 1660 kcal/day, 69 gm protein/day, and 1360 ml free water/day Meets: 119% of upper end of estimated caloric needs and 133% of lower end of estimated protein needs Please see Nutrition F/U note for details. PENITENTIARY, RD
[2019-06-15 16:24] VITALS: BP_SYST 142
[2019-06-15] MEDS: KCL 20 mEq in D5/0.45NS 1000mL 1,000 ML IV SCH (18:48)
--- NOTE | 2019-06-15 19:00 | NUR ---
closing notes iv was infiltrated and endorsed to night nurse. gt feeding lonnie well and no residual noted. hob elevated. bed to the lowest positiona and side rails up and locked. turned repositioned for comfort.
--- NOTE | 2019-06-15 19:25 | NUR ---
Opening note received report, patient resting in bed no s/sx of distress. Side rails up 3x, bed alarm on, seizure precautions in place, nonlabored breathing on 3L oxymizer.
[2019-06-15 20:00] VITALS: BP_SYST 121
[2019-06-15] MEDS: ZIPRASIDONE HCL 20 MG CAPSULE (GEODON) PO SCH (22:03)
--- NOTE | 2019-06-15 22:05 | NUR ---
Medications due medications give, via G-tube, presently unable to give solumedrol, no IV access will start IV site.
--- NOTE | 2019-06-15 23:28 | NUR ---
IV start New IV # 22 gauge angiocath placed to right upper arm. Use of asceptic technique and opsite placed over site. Blood return noted. Flushed with 10 cc of normal saline. No evidence of infiltration noted. Patient tolertated. Administered solumedrol IVP as ordered.
--- NOTE | 2019-06-15 23:30 | NUR ---
Zosyn IV site obtained and infusing, Zosyn, patient tolerating
--- NOTE | 2019-06-16 | NUR ---
FEEDING PUMP STOPPED AT THIS TIME PER MD ORDER PATIENT IS RESTING. NO S/S OF RESPIRATORY DISTRESS NOTED. CALL LIGHT IN REACH. BED IS LOCKED, ALARMED, AND AT THE LOWEST POSITION. Addendum: 06/17/19 at 0421 by Ольга Salcido RN WRONG DATE
--- NOTE | 2019-06-16 00:35 | NUR ---
Feeding complete / free water flush feeding stopped, no residual, 150 ml free water flush
[2019-06-16] MEDS: LevALBUTEROL HCL 1.25 MG/0.5 ML *CONC.* VIAL.NEB (XOPENEX CONC.) INH SCH ×4 (01:25→18:43)
[2019-06-16 01:43] VITALS: BP_SYST 107
--- NOTE | 2019-06-16 04:15 | NUR ---
Feeding started Hung new bag of Jevity 1.5 and running at 50 ml/hr as ordered.
[2019-06-16] MEDS: PIPERACILLIN/TAZO 3.375/DEX-IS 50 ML IV SCH ×5 (06:39→23:42)
--- NOTE | 2019-06-16 06:50 | NUR ---
jed, closing note due antibiotic given, patient is in no s/sx of distress will endorse care to incoming nurse
[2019-06-16] MEDS: METOPROLOL TARTRATE 25 MG TABLET GT SCH ×2 (09:52→20:17)
[2019-06-16] MEDS: methylPREDNISolone SOD SUCC 40 MG/ML VIAL IVP SCH (09:52)
[2019-06-16] MEDS: ASCORBIC ACID 500 MG TABLET GT SCH (09:52)
[2019-06-16] MEDS: VALPROIC ACID 250 MG CAPSULE (DEPAKENE) PO SCH ×2 (09:53→20:16)
[2019-06-16] MEDS: DOCUSATE SODIUM 100 MG CAPSULE PO SCH (09:53)
[2019-06-16] MEDS: CHOLECALCIFEROL (VITAMIN D3) 2,000 UNIT TABLET PO SCH (09:54)
[2019-06-16 09:55] VITALS: BP_SYST 113
[2019-06-16] MEDS: ENOXAPARIN SODIUM 40 MG/0.4 ML SYRINGE SUBCUT SCH (09:55)
--- NOTE | 2019-06-16 09:55 | NUR ---
Routine Scheduled medications given per order. Patient resting quietly in bed with no respiratory distress noted. No residual. Patient stable at this time.
[2019-06-16] MEDS: KCL 20 mEq in D5/0.45NS 1000mL 1,000 ML IV SCH ×2 (10:15→23:44)
[2019-06-16 11:55] VITALS: BP_SYST 113
[2019-06-16 12:00] VITALS: BP_SYST 111
--- NOTE | 2019-06-16 12:53 | NUR ---
Routine Patient resting quietly in bed with no respiratory distress noted. Scheduled IV abx given per order. G-tube flushed with 150mls of water. Patient stable at this time.
--- NOTE | 2019-06-16 14:30 | NUR ---
Routine Patient resting quietly in bed with no respiratory distress noted. Patient stable at this time.
--- NOTE | 2019-06-16 16:00 | NUR ---
RT Note: 1550 Pt suctioned via right nare. Suctioned moderate amount of thick pale yellow secretions. Post suctioning, pt placed on 3LPM nasal cannula, 32% FiO2. Pt's SpO2 is at 93-94%. Pt tolerated procedure well. RN made aware.
[2019-06-16 16:05] VITALS: BP_SYST 106
--- NOTE | 2019-06-16 18:15 | NUR ---
Routine Scheduled IV abx given per order. Patient resting quietly in bed with no respiratory distress. Patient stable throughout shift.
[2019-06-16 19:50] VITALS: BP_SYST 133
--- NOTE | 2019-06-16 19:50 | NUR ---
INITIAL NOTES PATIENT IS STABLE AND LAYING IN BED. NO S/S OF RESPIRATORY DISTRESS NOTED. PATIENT UNSUCCESSFULLY DEMONSTRATES USAGE OF CALL LIGHT AT THIS TIME. WILL CONTINUE TO MONITOR FREQUENTLY. PLAN OF CARE IS DISCUSSED WITH PATIENT AT THIS TIME. FALL, SAFETY, ASPIRATION, RESPIRATORY AND SEIZURE PRECAUTIONS WILL BE IN PLACE THROUGHOUT THE SHIFT. BED IS LOCKED, ALARMED, AND AT THE LOWEST POSITION.
[2019-06-16] MEDS: PREDNISONE 20 MG TABLET GT SCH (20:16)
[2019-06-16] MEDS: ZIPRASIDONE HCL 20 MG CAPSULE (GEODON) PO SCH (20:16)
--- NOTE | 2019-06-16 21:50 | NUR ---
IV ON THE LEFT ARM IS DISCONTINUED AT THIS TIME APPLIED PRESSURE TO REDUCE BLEEDING. BLEEDING STOPPED. IV TIP IS INTACT. PATIENT IS STABLE. NO S/S OF RESPIRATORY DISTRESS. CALL LIGHT IN REACH .BED IS LOCKED, ALARMED, AND AT THE LOWEST POSITION.
--- NOTE | 2019-06-17 | NUR ---
FEEDING PUMP STOPPED AT THIS TIME PER MD ORDER PATIENT IS RESTING. NO S/S OF RESPIRATORY DISTRESS NOTED. CALL LIGHT IN REACH. BED IS LOCKED, ALARMED, AND AT THE LOWEST POSITION.
--- NOTE | 2019-06-17 00:30 | NUR ---
WOUND CARE PERFORMED AT THIS TIME WOUND CARE PERFORMED AT THIS TIME. PATIENT TOLERATED WELL. NO S/S OF RESPIRATORY DISTRESS NOTED. CALL LIGHT IN REACH. BED IS LOCKED, ALARMED, AND AT THE LOWEST POSITION.
[2019-06-17] MEDS: LevALBUTEROL HCL 1.25 MG/0.5 ML *CONC.* VIAL.NEB (XOPENEX CONC.) INH SCH ×4 (00:48→19:39)
[2019-06-17 01:38] VITALS: BP_SYST 104
--- NOTE | 2019-06-17 02:30 | NUR ---
PATIENT HAD A BOWEL MOVEMENT PATIENT HAD A BOWEL MOVEMENT. DRESSING IS STILL CLEAN, DRY, AND INTACT. PATIENT WAS CLEANED AT THIS TIME AND LINENS CHANGED. PATIENT TOLERATED WELL. NO S/S OF RESPIRATORY DISTRESS. CALL LIGHT IN REACH. BED IS LOCKED, ALARMED, AND AT THE LOWEST POSITION.
--- NOTE | 2019-06-17 04:15 | NUR ---
TUBE FEEDING RESUMED AT THIS TIME PER MD ORDERS PATIENT IS RESTING IN BED AND STABLE. NO S/S OF RESPIRATORY DISTRESS NOTED. CALL LIGHT IN REACH. BED IS LOCKED, ALARMED, AND AT THE LOWEST POSITION.
[2019-06-17] MEDS: PIPERACILLIN/TAZO 3.375/DEX-IS 50 ML IV SCH ×3 (05:32→20:52)
--- NOTE | 2019-06-17 06:04 | NUR ---
CLOSING NOTES PATIENT IS RESTING IN BED AND STABLE. NO S/S OF RESPIRATORY DISTRESS NOTED. CALL LIGHT IN REACH.BED IS LOCKED, ALARMED, AND AT THE LOWEST POSITION. FALL, SAFETY, ASPIRATION, AND RESPIRATORY PRECAUTIONS HAS BEEN IN PLACE THROUGHOUT THE SHIFT. WILL CONTINUE TO MONITOR UNTIL REPORT IS GIVEN TO AM NURSE BY BEDSIDE.
[2019-06-17 08:00] VITALS: BP_SYST 101; BP_SYST 123
[2019-06-17] MEDS: CHOLECALCIFEROL (VITAMIN D3) 2,000 UNIT TABLET PO SCH (09:54)
[2019-06-17] MEDS: DOCUSATE SODIUM 100 MG CAPSULE PO SCH (09:55)
[2019-06-17] MEDS: VALPROIC ACID 250 MG CAPSULE (DEPAKENE) PO SCH (09:55)
[2019-06-17] MEDS: ASCORBIC ACID 500 MG TABLET GT SCH (09:55)
[2019-06-17] MEDS: PREDNISONE 20 MG TABLET GT SCH (09:56)
[2019-06-17] MEDS: METOPROLOL TARTRATE 25 MG TABLET GT SCH (09:57)
[2019-06-17 12:51] VITALS: BP_SYST 111
[2019-06-17 16:12] VITALS: BP_SYST 114
--- NOTE | 2019-06-17 16:24 | NUR ---
Discharge Planning: DCP spoke with Biju at [facility] ([phone]) pt accepted to [facility], DCP called nurse to set up transportation nurse made DCP aware wound RN had not seen patient, possible tomorrow.
[2019-06-17 17:49] VITALS: BP_SYST 101
--- NOTE | 2019-06-17 19:13 | NUR ---
[facility]SP[facility] IS SET FOR 2100
[2019-06-17 21:00] VITALS: BP_SYST 105
--- NOTE | 2019-06-17 21:28 | NUR ---
DISCHARGE Patient awake, in no distress, on 02 2l NC, vital signs stable, gtube clamped, flushed with water, no residual noted, IV line to right upper arm intact and patent, saline locked, patient had a bm, incontinence care provided, changed gown and linens, report given to medic personnel, paperwork also given, patient had no belongings.
== END 2019-06-17 21:35 | DRG 177 ==
LOC: SED 09:00 → STU 12:20
PROVIDERS: ADMIT Family Medicine; ATTEND Family Medicine
DX: J15.6 Pneumonia due to other Gram-negative bacteria (principal); J96.21 Acute and chronic respiratory failure with hypoxia; J44.1 Chronic obstructive pulmonary disease with (acute) exacerbation; J44.0 Chronic obstructive pulmonary disease with (acute) lower respiratory infection; F03.90 Unspecified dementia, unspecified severity, without behavioral disturbance, psychotic disturbance, mood disturbance, and anxiety; I10 Essential (primary) hypertension; F31.9 Bipolar disorder, unspecified; Z66 Do not resuscitate; Z87.891 Personal history of nicotine dependence; Z79.899 Other long term (current) drug therapy; Z93.1 Gastrostomy status
CPT/HCPCS: 36415; 36600; 71045; 80048; 80053; 81000-TC; 82803-TC; 83605; 83735-TC; 84484; 85025; 85610-TC; 85730-TC; 87040-TC; 87081; 87086; 94640; 94760; 96361; 96365; 96375; 99291; G0378; J0696; J1030; J1650; J2543; J2930; J7030; J7512; J7612; J7620